=== PATIENT | female | born 1955 | race Caucasian/White ===

== ENCOUNTER 2017-12-13 11:44 | Emergency (ER) | payer OTHER ==
[~2017-12-13] VITALS: Ht 149.9 cm; Wt 68.0 kg
[2017-12-13] MEDS ORDERED: ATORVASTATIN CA40 MG (12:13)
[2017-12-13] MEDS ORDERED: LOSARTAN POTASS50 MG (12:13)
[2017-12-13] MEDS ORDERED: LEVOTHYROXINE100 MCG (12:13)
[2017-12-13] MEDS ORDERED: TRESIBA (12:13)
[2017-12-13] MEDS ORDERED: ASPIRIN 81 MG CHEW TAB PO ONE (12:15)
[2017-12-13 12:22] LABS: BASOPHILS # (AUTO) 0.1 (0.0-0.1); BASOPHILS % 0.4 % (0.0-1.0); EOSINOPHILS # (AUTO) 0.3 (0.0-0.4); EOSINOPHILS % 2.2 % (0.0-6.0); HEMATOCRIT 45.7 % (34.2-44.1); HEMOGLOBIN 15.6 g/dL (12.0-16.0); LYMPHOCYTES # (AUTO) 2.3 (1.0-3.2); LYMPHOCYTES % 20.9 % (18.0-39.1); MEAN CORPUSCULAR HEMOGLOBIN 29.4 pg (28-32); MEAN CORPUSCULAR HGB CONC 34.1 g/dL (31-35); MEAN CORPUSCULAR VOLUME 86.2 fL (81-99); MONOCYTES # (AUTO) 0.9 (0.2-0.8); MONOCYTES % 7.8 % (4.4-11.3); NEUTROPHILS # (AUTO) 7.6 (2.1-6.9); NEUTROPHILS % 68.3 % (38.7-80.0); PLATELET COUNT 248 x10e3/uL (140-360); RED CELL DISTRIBUTION WIDTH 13.2 % (11.7-14.4)
[2017-12-13 12:33] LABS: INR 0.77; PROTHROMBIN TIME 11.5 seconds (11.9-14.5)
[2017-12-13 12:34] LABS: PARTIAL THROMBOPLASTIN TIME 29.4 seconds (23.8-35.5)
[2017-12-13 12:39] LABS: AMYLASE 62 U/L (25-125); CREATINE KINASE 30 IU/L (29-168); LIPASE 18 U/L (8-78)
[2017-12-13 12:56] LABS: BILIRUBIN,URINE NEGATIVE (NEGATIVE); CLARITY,URINE HAZY (CLEAR); COLOR,URINE YELLOW (YELLOW); KETONES,URINE NEGATIVE (NEGATIVE); LEUKOCYTE ESTERASE ,URINE NEGATIVE (NEGATIVE); NITRITE,URINE NEGATIVE (NEGATIVE); PROTEIN,URINE DIPSTICK NEGATIVE (NEGATIVE); URINE UROBILINOGEN 0.2 mg/dL (0.2 - 1)
--- NOTE | 2017-12-13 13:07 | Diagnostic Imaging Report ---
EXAMINATION: CHEST SINGLE (PORTABLE) COMPARISON: None FINDINGS: TUBES and LINES: None. LUNGS: Low lung volumes. Mild patchy left basilar opacity. No evidence of lobar consolidation or pulmonary edema. PLEURA: No pleural effusion or pneumothorax. HEART AND MEDIASTINUM: The cardiomediastinal silhouette is unremarkable. BONES AND SOFT TISSUES: No acute osseous lesion. Soft tissues are unremarkable. UPPER ABDOMEN: No free air under the diaphragm. IMPRESSION: Mild patchy left basilar opacity, likely atelectasis. No evidence of lobar pneumonia or pulmonary edema. Signed by: Dr. Juan Morelos MD on 12/13/2017 1:04 PM
[2017-12-13 13:15] LABS: BACTERIA,URINE RARE /HPF; CALCIUM OXALATE CRYSTALS,UR RARE (FEW); EPITHELIAL CELLS,URINE FEW /LPF; MUCUS,URINE MODERATE (RARE)
[2017-12-13 13:31] LABS: ALANINE AMINOTRANSFERASE 46 IU/L (0-55); ALBUMIN/GLOBULIN RATIO 0.9 (0.8-2.0); ALKALINE PHOSPHATASE 168 IU/L (40-150); BLOOD UREA NITROGEN 19 mg/dL (7-26); BUN/CREATININE RATIO 23 (6-25); CALCIUM 10.3 mg/dL (8.4-10.2); CARBON DIOXIDE 24 mmol/L (22-29); CHLORIDE 103 mmol/L (98-107); CREATININE, SERUM 0.81 mg/dL (0.57-1.11); EST GLOMERULAR FILTRATION RATE > 60 ML/MIN (60-); GLUCOSE 194 mg/dL (74-118); SODIUM 138 mmol/L (136-145)
--- OUTSIDE RECORDS SUMMARY | 2017-12-24 11:10 | XMS REPORT | Summary of Care ---
Author Author [facility] Outpatient Imaging [facility] Address Unknown Phone Unavailable Encounter HQ Encntr_alias(FIN) [id number] Date(s): 10/05/16 - 10/05/16 [facility] Outpatient Imaging [facility] [address] [facility], [address] [place] [phone] Discharge Disposition: Home or Self Care Attending Physician: Nehemiah Carter MD Vital Signs No data available for this section Problem List Condition Effective Dates Status Health Status Informant Asthma(Confirmed) Resolved Diabetes Resolved mellitus(Confirmed) Fatty Resolved liver(Confirmed) Hyperlipidemia(Confi Resolved rmed) Allergies, Adverse Reactions, Alerts Substance Reaction Severity Status NKDA Active Medications No data available for this section Results No data available for this section Immunizations Given and Recorded Vaccine Date Status Refusal Reason influenza virus vaccine, inactivated 05/09/13 Given Procedures Procedure Date Related Diagnosis Body Site Hysterectomy Social History No data available for this section Assessment and Plan No data available for this section
--- OUTSIDE RECORDS SUMMARY | 2017-12-24 11:10 | XMS REPORT | Summary of Care ---
Author Author [facility] Organization [facility] Address Unknown Phone Unavailable Encounter CORAZON Mejía(GIORGIO) [id number] Date(s): 10/23/16 - 10/23/16 [facility] [address] [place] [address]- [phone] Discharge Disposition: Home or Self Care Attending Physician: Live Montes MD Referring Physician: Live Montes MD Vital Signs 1 2 3 Most recent to oldest [Reference Range]: 149.86 cm (10/22/16 8:35 AM) Height 120/68 mmHg (10/23/16 11:25 AM) 106/63 mmHg (10/23/16 11:05 AM) 105/58 mmHg (10/23/16 10:50 AM) Blood Pressure [90-140/60-90 mmHg] 18 BRMIN (10/23/16 11:25 AM) 11 BRMIN *LOW* (10/23/16 11:05 AM) 17 BRMIN (10/23/16 10:50 AM) Respiratory Rate [14-20 BRMIN] 66.989 kg (10/22/16 8:35 AM) Weight 29.83 m2 (10/22/16 8:35 AM) Body Mass Index Problem List Condition Effective Dates Status Health Status Informant Asthma(Confirmed) Resolved Diabetes Resolved mellitus(Confirmed) Diverticulosis(Confi Resolved rmed) Fatty Resolved liver(Confirmed) Hyperlipidemia(Confi Resolved rmed) HTN Resolved (hypertension)(Confi rmed) Hypothyroid(Confirme Resolved d) Renal Resolved calculi(Confirmed) Thyroid Resolved cancer(Confirmed) Bladder Resolved cancer(Confirmed) Colon Resolved polyps(Confirmed) Allergies, Adverse Reactions, Alerts Substance Reaction Severity Status venlafaxine Active Medications albuterol-ipratropium 2.5-0.5 mg inhalation solution 3 mL, Route: NEB, Dosing Weight 66.989, kg, ONCE, STAT, Start date: 10/23/16 9:4 5:00 CDT, Stop date: 10/23/16 9:45:00 CDT Start Date: 10/23/16 Stop Date: 10/23/16 Status: Discontinued ALPRAZOLam 0.5 mg oral tablet 0.5 mg=1 tab, PO, TID, PRN Anxiety, # 30 tab, 0 Refill(s) Start Date: 10/22/16 Stop Date: 11/01/16 Status: Ordered atorvastatin 40 mg oral tablet 40 mg=1 tab, PO, Bedtime, # 30 tab, 0 Refill(s) Start Date: 10/22/16 Status: Ordered fluticasone nasal 0.05 mg/inh spray 1 spray, NASAL, Daily, 0 Refill(s) Start Date: 10/22/16 Stop Date: 10/23/16 Status: Deleted Januvia 100 mg oral tablet 100 mg=1 tab, PO, Daily, # 30 tab, 0 Refill(s) Start Date: 10/22/16 Status: Ordered Levemir 100 units/mL SUB-Q, inject 35 units nightly: replacing Lantus, 0 Refill(s) Start Date: 10/22/16 Status: Ordered NovoLOG 100 units/mL See Instructions, 0 Refill(s) Start Date: 10/22/16 Status: Ordered Sodium Chloride 0.9% IV 500 mL 500 mL, Rate: 25 ml/hr, Infuse over: 20 hr, Route: IV, Dosing Weight 66.989 kg, Total Volume: 500, Start date: 10/23/16 9:45:00 CDT, Duration: 30 day, Stop date : 11/22/16 9:44:00 CDT Start Date: 10/23/16 Stop Date: 10/23/16 Status: Discontinued Results No data available for this section Immunizations Given and Recorded Vaccine Date Status Refusal Reason influenza virus vaccine, inactivated 05/09/13 Given Procedures Procedure Date Related Diagnosis Body Site Hysterectomy Oophorectomy Social History Social History Type Response Smoking Status Never smoker; Lives with someone who smokes; Cigarette Smoking Last 365 Days No; Reg Smoking Cessation Counseling No Assessment and Plan No data available for this section
--- OUTSIDE RECORDS SUMMARY | 2017-12-24 11:10 | XMS REPORT | Continuity of Care Document ---
Author Author [facility] Interface Address Unknown Phone Unavailable Problems Problem Status Onset Date Classification Date Reported Comments Source UNK Active 10/17/2016 [facility] M72.2 - PLANTAR FASCIAL FIBROMATOSIS Active 10/05/2016 [facility]hma [facility] Diabetes mellitus Resolved Problem 10/26/2016 [facility] Diverticulosis Resolved Problem 10/26/2016 [facility] Fatty liver Resolved Problem 10/26/2016 [facility] Hyperlipidemia Resolved Problem 10/26/2016 [facility] HTN (<span ID="[id number]">Confirmed</span>) Resolved Problem 10/26/2016 [facility] Hypothyroid Resolved Problem 10/26/2016 [facility] Renal calculi Resolved Problem 10/26/2016 [facility] Thyroid cancer Resolved Problem 10/26/2016 [facility] Bladder cancer Resolved Problem 10/26/2016 [facility] Colon polyps Resolved Problem 10/26/2016 [facility] Medications Medication Details Route Status Patient Instructions Ordering Provider Order Date Source Albuterol 0.833 MG/ML / Ipratropium Clarion 0.167 MG/ML Inhalant Solution 3 mL, Route: NEB, Dosing Weight 66.989, kg, ONCE, STAT, Start date: 10/23/16 9:45:00 CDT, Stop date: 10/23/16 9:45:00 CDT Inactive 10/23/2016 [facility] Sodium Chloride 0.9% IV 500 mL 500 mL, Rate: 25 ml/hr, Infuse over: 20 hr, Route: IV, Dosing Weight 66.989 kg, Total Volume: 500, Start date: 10/23/16 9:45:00 CDT, Duration: 30 day, Stop date: 11/22/16 9:44:00 CDT Inactive 10/23/2016 [facility] sitagliptin 100 MG Oral Tablet [Januvia] 100 mg=1 tab, PO, Daily, # 30 tab, 0 Refill(s) Active 10/22/2016 [facility] Insulin, Aspart, Human 100 UNT/ML Injectable Solution [NovoLog] See Instructions, 0 Refill(s) Active 10/22/2016 [facility] insulin detemir 100 UNT/ML Injectable Solution [Levemir] SUB-Q, inject 35 units nightly: replacing Lantus, 0 Refill(s) Active 10/22/2016 [facility] atorvastatin 40 mg oral tablet 40 mg=1 tab, PO, Bedtime, # 30 tab, 0 Refill(s) Active 10/22/2016 [facility] Alprazolam 0.5 MG Oral Tablet 0.5 mg=1 tab, PO, TID, PRN Anxiety, # 30 tab, 0 Refill(s) Active 10/22/2016 [facility] Fluticasone propionate 0.05 MG/ACTUAT Metered Dose Nasal Shafer 1 spray, NASAL, Daily, 0 Refill(s) No Longer Active 10/22/2016 [facility] Allergies, Adverse Reactions, Alerts Substance Category Reaction Severity Reaction type Status Date Reported Comments Source venlafaxine Assertion Drug allergy Active [facility] Immunizations Immunization Date Given Site Status Last Updated Comments Source influenza virus vaccine, inactivated 05/09/2013 Right deltoid completed [facility] Results Order Name Results Value Reference Range Date Interpretation Comments Source Spine cervical wo contrast MRI Spine cervical wo contrast MRI EXAM: Spine cervical wo contrast MRI DATE: 10/05/2017 11:19 AM CDT . ORDERING PHYSICIAN: Gela Martinez MD CLINICAL INDICATION: R29.2 Abnormal reflex - R29.2 Abnormal reflex; TECHNIQUE: Multiplanar, multisequence MRI cervical spine without IV contrast COMPARISON: Unavailable FINDINGS: VISUALIZED INTRACRANIAL CONTENTS: Unremarkable. CRANIOCERVICAL JUNCTION: The cerebellar tonsils are in normal position. SPINAL CORD: No definite cord signal abnormality. No definite dural based lesion. VERTEBRAE: The vertebrae are normal in height. The lordosis is straightened. No focal suspicious bone marrow signal abnormality. PARASPINAL SOFT TISSUES: No edema or masses DISC LEVELS, SPINAL CANAL, NEURAL FORAMINA: The cervical pedicles are short. Craniocervical junction: No stenosis C1-C2: No subluxation, ligamentous pannus formation, or stenosis C2-C3: Intervertebral disc height and signal are maintained. Posterior elements are normal.There is no stenosis. C3-C4: Desiccated disc with circumferential disc osteophyte complex. There is bilateral facet and uncinate hypertrophy. Central canal measures 10 mm. There is moderate to severe narrowing of the neural foramina, left greater than right. C4-C5: Desiccated disc with circumferential disc osteophyte complex and shallow 2 mm central zone disc protrusion. This bilateral facet hypertrophy. Uncinate processes are unremarkable. Central canal measures 10 mm. There is mild narrowing of the neural foramina. C5-C6: Desiccated disc with circumferential disc osteophyte complex. There is bilateral facet and uncinate hypertrophy. Central canal measures 9 mm with ventral spinal cord deformity. There is severe left and moderate right neural foramen narrowing. C6-C7: Desiccated disc with circumferential disc osteophyte complex. There is left facet hypertrophy. Uncinate processes are unremarkable. Central canal measures 10 mm. There is mild narrowing of left neural foramen. C7-T1: Desiccated disc with circumferential disc osteophyte complex asymmetric to left. This left greater than right facet and uncinate hypertrophy. Central canal measures 10 mm. There is moderate narrowing of the left neural foramen. IMPRESSION: 1. C5-6 mild spinal stenosis with ventral spinal cord deformity but no evidence of myelopathy 2. Borderline spinal stenosis at C3-4, C6-7, C7-T1 with no spinal cord mass effect 3. Severe/moderate to severe neural foramen narrowing bilaterally at C3-4 and on the left at C5-6 4. Please see additional comments above 10/05/2017 - - Read by: Kei Corona MD Dictated Date/time: 10/05/17 15:07 Electronically Signed by: Kei Corona MD 10/05/17 15:13 FINAL REPORT STEPHANIE Ponce Abdomen complete US Abdomen complete US EXAM: US ABDOMEN COMPLETE DATE: 10/17/2016 2:01 PM CDT INDICATION: - R10.9 Unspecified abdominal pain,R74.8 Abnormal levels of other serum enzymes. Gaseous and bloating. ADDITIONAL INFORMATION: None. COMPARISON: CT scan of the abdomen and pelvis of 05/08/2013. Abdominal ultrasound of 04/12/2008.. TECHNIQUE: Multiplanar grayscale and color Doppler ultrasound images of the abdomen. Note was made by the technologist that the exam was limited secondary to the patient's body habitus and bowel gas. FINDINGS: Liver: Craniocaudal length: 13.5 cm. Normal. Echogenicity: Diffusely mildly increased. Surface nodularity: None Mass (size and location): None. Portal vein: 9 mm with hepatopetal flow. Bile ducts: Common bile duct diameter: 5.1 mm. Normal. Intrahepatic ducts: Normal. Gallbladder: Normal. Gallstones: None. Gallbladder sludge: None. Gallbladder wall: 2.4 mm. Normal. Pericholecystic fluid: None. Sonographic Carter sign: Absent. Pancreas: No abnormalities of the visualized portions of the pancreas are demonstrated. Portions of the pancreas are obscured by overlying bowel gas. Spleen: Craniocaudal length: 11.3 cm. Normal. Mass or focal lesion (size and location): None. Right kidney: Size: 10.2 x 5.0 x 5.6 cm. Normal. Hydronephrosis: None. Echogenicity: Normal. Mass/Stone/Cyst (size and location): None. Left kidney: Size: 10.8 x 4.7 x 5.5 cm. Normal. Hydronephrosis: None. Echogenicity: Normal. Mass/Stone/Cyst (size and location): There is a partially exophytic anechoic avascular thin-walled simple left renal superior pole cortical cyst measuring 2.0 x 2.9 x 2.2 cm. A second mid left simple renal cortical cyst measuring 1.6 x 1.8 x 1.1 cm is visualized. A third tiny simple cyst is seen in the inferior pole cortex of the left kidney measuring 0.9 x 0.8 x 0.6 cm. These are stable from the prior CT exam. Abdominal aorta and IVC: Visualized portions are normal. Ascites: None Pleural Effusions: None IMPRESSION: 1. Diffuse mild increased echogenicity of the liver, a nonspecific finding most commonly seen with hepatic steatosis (fatty infiltration) as seen on the prior CT exam. 2. Simple left renal cortical cysts, stable from the prior CT of 05/08/2013. 10/17/2016 - - Read by: Jonatan Restrepo MD Dictated Date/time: 10/17/16 15:26 Electronically Signed by: Jonatan Restrepo MD 10/17/16 15:33 FINAL REPORT [facility] Foot series DX Foot series DX EXAM: XR RIGHT FOOT 3 VIEWS DATE: 10/05/2016 11:51 AM CDT INDICATION: - M72.2 Plantar fascial fibromatosis COMPARISON: None available TECHNIQUE: AP, lateral and oblique radiographs of the foot FINDINGS: No acute fracture or malalignment is identified. Small calcaneal enthesophytes are noted. No soft tissue abnormality is identified. IMPRESSION: No acute abnormality. 10/05/2016 - - This report was dictated by a Straightedge Machine Operator Helper/Fellow. I have personally reviewed the images as well as the Resident's interpretation and agree with the findings. Read by: Mitchell Fairbanks MD Resident: Mitchell Fairbanks MD Dictated Date/time: 10/05/16 13:52 Electronically Signed by: Rafael Camacho MD 10/05/16 17:16 FINAL REPORT [facility] Vital Signs Vital Sign Value Date Comments Source Respitory Rate 18 10/23/2016 [facility] Systolic (mm Hg) 120 10/23/2016 [facility] Diastolic (mm Hg) 68 10/23/2016 [facility] Systolic (mm Hg) 106 10/23/2016 [facility] Diastolic (mm Hg) 63 10/23/2016 [facility] Respitory Rate 11 10/23/2016 [facility] Systolic (mm Hg) 105 10/23/2016 [facility] Diastolic (mm Hg) 58 10/23/2016 [facility] Respitory Rate 17 10/23/2016 [facility] BMI Calculated 29.83 10/22/2016 [facility] Height 149.86 cm 10/22/2016 [facility] Weight 66.989 10/22/2016 [facility] Encounters Location Location Details Encounter Type Encounter Number Reason For Visit Attending Provider ADM Date DC Date Status Source [facility] Outpatient Imaging [facility] Out[facility] Di[facility] [id number] Nehemiah Carter 10/05/2016 10/06/2016 [facility] [place] [id number] Live Montes 10/17/2016 10/18/2016 [facility] Outpatient [id number] Live Montes 10/23/2016 10/23/2016 [facility] Procedures Procedure Code Date Perfomer Comments Source Hysterectomy [id number] [facility] Hysterectomy [id number] [facility] Oophorectomy [id number] [facility]
--- OUTSIDE RECORDS SUMMARY | 2017-12-24 11:10 | XMS REPORT | Summary of Care ---
Author Author [facility] Outpatient Imaging [facility] Outpatient [facility] Address Unknown Phone Unavailable Encounter HQ Alexntr_alisamia(FIN) [id number] Date(s): 10/17/16 - 10/17/16 [facility] [address] [facility], [address] [place] [phone] Discharge Disposition: Home or Self Care Attending Physician: Live Montes MD Vital Signs No data available for [...]
== END 2017-12-13 14:20 | disposition home or self-care (01) ==
LOC: ER 11:44
DX: R07.89 Other chest pain (principal); R11.0 Nausea; R61 Generalized hyperhidrosis; E11.9 Type 2 diabetes mellitus without complications; I10 Essential (primary) hypertension; E78.5 Hyperlipidemia, unspecified; E07.9 Disorder of thyroid, unspecified
CPT/HCPCS: 36415; 71045; 80053; 81001; 82150; 82550; 82553; 83690; 84484; 85025; 85610; 85730; 93005; 99283

== ENCOUNTER 2020-01-13 07:15 | Observation (INO) | payer OTHER ==
[~2020-01-13] VITALS: Ht 149.9 cm; Wt 70.3 kg
[~2020-01-13 07:15] MED LIST: ATORVASTATIN CA40 MG PO; LEVOTHYROXINE100 MCG PO; LOSARTAN POTASS50 MG PO; TRESIBA
[2020-01-13] MEDS ORDERED: PANTOPRAZOLE 40 MG 10ML VIAL IV STA (07:30)
[2020-01-13] MEDS ORDERED: ASPIRIN 81 MG CHEW TAB PO ONE (07:30)
[2020-01-13 07:46] LABS: BASOPHILS % 0.5 % (0.0-1.0); EOSINOPHILS # (AUTO) 0.2 (0.0-0.4); EOSINOPHILS % 2.4 % (0.0-6.0); HEMATOCRIT 40.4 % (34.2-44.1); HEMOGLOBIN 13.6 g/dL (12.0-16.0); LYMPHOCYTES % 26.8 % (18.0-39.1); MEAN CORPUSCULAR HEMOGLOBIN 29.4 pg (28-32); MEAN CORPUSCULAR HGB CONC 33.7 g/dL (31-35); MEAN CORPUSCULAR VOLUME 87.4 fL (81-99); MONOCYTES # (AUTO) 0.6 (0.2-0.8); MONOCYTES % 7.3 % (4.4-11.3); NEUTROPHILS # (AUTO) 4.7 (2.1-6.9); NEUTROPHILS % 62.5 % (38.7-80.0); PLATELET COUNT 207 x10e3/uL (140-360); RED BLOOD COUNT 4.62 x10e6/uL (3.6-5.1); RED CELL DISTRIBUTION WIDTH 12.9 % (11.7-14.4)
[2020-01-13 07:57] LABS: INR 0.84; PROTHROMBIN TIME 11.9 seconds (11.9-14.5)
[2020-01-13 07:58] LABS: PARTIAL THROMBOPLASTIN TIME 28.6 seconds (23.8-35.5)
[2020-01-13 08:09] LABS: ALANINE AMINOTRANSFERASE 87 IU/L (0-55); ALBUMIN 3.7 g/dL (3.5-5.0); ALBUMIN/GLOBULIN RATIO 0.9 (0.8-2.0); ALKALINE PHOSPHATASE 145 IU/L (40-150); ANION GAP 11.5 mmol/L (8-16); BLOOD UREA NITROGEN 12 mg/dL (7-26); BUN/CREATININE RATIO 16 (6-25); CALCIUM 9.2 mg/dL (8.4-10.2); CARBON DIOXIDE 26 mmol/L (22-29); CHLORIDE 105 mmol/L (98-107); CREATINE KINASE 29 IU/L (29-168); CREATININE, SERUM 0.73 mg/dL (0.57-1.11); EST GLOMERULAR FILTRATION RATE > 60 ML/MIN (60-); GLUCOSE 152 mg/dL (74-118); MAGNESIUM 1.8 MG/DL (1.3-2.1); POTASSIUM 3.5 mmol/L (3.5-5.1); SODIUM 139 mmol/L (136-145)
--- NOTE | 2020-01-13 08:14 | Emergency Department Note ---
History of Present Illnes History of Present Illness Chief Complaint: General Medicine Complaints History of Present Illness This is a 64 year old female pt came in via [facility] called for c/o dizziness, pt states that she woke up this morning and felt a "knot" in her belly, pressure-like pain to her chest with radiation to back and diaphoresis and stating that she felt light headed when she tried to get up, pt appears to be in no distress. CP 7/10 lasted ~10-15 mins, resolved on the way here. Historian: Patient Arrival Mode: [facility] Treatment GENERAL MAGISTRATE: IV Public Policy Analyst Required: No Onset (how long ago): minute(s) Location: mid sternal Quality: pressure Radiation: Reports back Severity: moderate Onset quality: sudden Progression: resolved Chronicity: recurrent Context: Denies recent illness Relieving factors: none Exacerbating factors: none Associated symptoms: Reports chest pain; Denies cough, Denies fever/chills, Denies shortness of breath Past Medical/Family History Physician Review I have reviewed the patient's past medical and family history. Any updates have been documented here. Past Medical History Recent Fever: No Clinical Suspicion of Infectio: No New/Unexplained Change in Ment: No Past Medical History: Hypertension, Diabetes, Asthma, Hypothyroidism, Hyperlipedemia Past Surgical History: Hysterectomy Social History Smoking Cessation: Never Smoker Counseling Performed: No Alcohol Use: None Any Illegal Drug Use: No TB Exposure/Symptoms: No Physically hurt or threatened: No Family History Family history of heart diseas: Yes Other Any Pre-Existing Lines (PICC,: No Review of Systems Review of Systems Constitutional: Reports no symptoms EENTM: Reports no symptoms Cardiovascular: Reports as per HPI, Reports chest pain Respiratory: Reports no symptoms Gastrointestinal: Reports no symptoms Genitourinary: Reports no symptoms Musculoskeletal: Reports no symptoms Integumentary: Reports no symptoms Neurological: Reports as per HPI, Reports other (dizziness which occurred when having chest pressure, resolved when CP resolved) Psychological: Reports no symptoms Endocrine: Reports no symptoms Hematological/Lymphatic: Reports no symptoms Physical Exam Related Data Allergies: Coded Allergies: No Known Allergies (Unverified , 12/13/17) Triage Vital Signs Vital Signs Date Time Temp Pulse Resp B/P (MAP) Pulse Ox O2 Delivery O2 Flow Rate FiO2 01/13/20 07:19 97.9 63 18 150/80 97 Room Air Vital signs reviewed: Yes Physical Exam CONSTITUTIONAL Constitutional: Present well-developed, Present well-nourished HENT HENT: Present normocephalic, Present atraumatic, Present oropharynx clear/moist, Present nose normal HENT L/R: Present left ext ear normal, Present right ext ear normal EYES Eyes: Reports PERRL, Reports conjunctivae normal NECK Neck: Present ROM normal PULMONARY Pulmonary: Present effort normal, Present breath sounds normal CARDIOVASCULAR Cardiovascular: Present regular rhythm, Present heart sounds normal, Present capillary refill normal, Present normal rate GASTROINTESTINAL Abdominal: Present soft, Present nontender, Present bowel sounds normal GENITOURINARY Genitourinary: Present exam deferred SKIN Skin: Present warm, Present dry MUSCULOSKELETAL Musculoskeletal: Present ROM normal NEUROLOGICAL Neurological: Present alert, Present oriented x 3, Present no gross motor or sensory deficits PSYCHOLOGICAL Psychological: Present mood/affect normal, Present judgement normal Results Laboratory Result Diagram: 01/13/20 0735 Laboratory Laboratory Tests Test 01/13/20 07:35 White Blood Count 7.50 x10e3/uL (4.8-10.8) Red Blood Count 4.62 x10e6/uL (3.6-5.1) Hemoglobin 13.6 g/dL (12.0-16.0) Hematocrit 40.4 % (34.2-44.1) Mean Corpuscular Volume 87.4 fL (81-99) Mean Corpuscular Hemoglobin 29.4 pg (28-32) Mean Corpuscular Hemoglobin Concent 33.7 g/dL (31-35) Red Cell Distribution Width 12.9 % (11.7-14.4) Platelet Count 207 x10e3/uL (140-360) Neutrophils (%) (Auto) 62.5 % (38.7-80.0) Lymphocytes (%) (Auto) 26.8 % (18.0-39.1) Monocytes (%) (Auto) 7.3 % (4.4-11.3) Eosinophils (%) (Auto) 2.4 % (0.0-6.0) Basophils (%) (Auto) 0.5 % (0.0-1.0) Neutrophils # (Auto) 4.7 (2.1-6.9) Lymphocytes # (Auto) 2.0 (1.0-3.2) Monocytes # (Auto) 0.6 (0.2-0.8) Eosinophils # (Auto) 0.2 (0.0-0.4) Basophils # (Auto) 0.0 (0.0-0.1) Absolute Immature Granulocyte (auto 0.04 x10e3/uL (0-0.1) Prothrombin Time 11.9 seconds (11.9-14.5) Prothromb Time International Ratio 0.84 Activated Partial Thromboplast Time 28.6 seconds (23.8-35.5) Sodium Level 139 mmol/L (136-145) Potassium Level 3.5 mmol/L (3.5-5.1) Chloride Level 105 mmol/L (98-107) Carbon Dioxide Level 26 mmol/L (22-29) Anion Gap 11.5 mmol/L (8-16) Blood Urea Nitrogen 12 mg/dL (7-26) Creatinine 0.73 mg/dL (0.57-1.11) Estimat Glomerular Filtration Rate > 60 ML/MIN (60-) BUN/Creatinine Ratio 16 (6-25) Glucose Level 152 mg/dL (74-118) Calcium Level 9.2 mg/dL (8.4-10.2) Magnesium Level 1.8 MG/DL (1.3-2.1) Total Bilirubin 0.5 mg/dL (0.2-1.2) Aspartate Amino Transf (AST/SGOT) 71 IU/L (5-34) Alanine Aminotransferase (ALT/SGPT) 87 IU/L (0-55) Alkaline Phosphatase 145 IU/L (40-150) Creatine Kinase 29 IU/L (29-168) Creatine Kinase MB 0.70 ng/mL (0-5.0) Troponin I 0.008 ng/mL (0-0.300) B-Type Natriuretic Peptide < 10.0 pg/mL (0-100) Total Protein 7.9 g/dL (6.5-8.1) Albumin 3.7 g/dL (3.5-5.0) Globulin 4.2 g/dL (2.3-3.5) Albumin/Globulin Ratio 0.9 (0.8-2.0) Laboratory Tests Test 01/13/20 07:35 White Blood Count 7.50 x10e3/uL (4.8-10.8) Red Blood Count 4.62 x10e6/uL (3.6-5.1) Hemoglobin 13.6 g/dL (12.0-16.0) Hematocrit 40.4 % (34.2-44.1) Mean Corpuscular Volume 87.4 fL (81-99) Mean Corpuscular Hemoglobin 29.4 pg (28-32) Mean Corpuscular Hemoglobin Concent 33.7 g/dL (31-35) Red Cell Distribution Width 12.9 % (11.7-14.4) Platelet Count 207 x10e3/uL (140-360) Neutrophils (%) (Auto) 62.5 % (38.7-80.0) Lymphocytes (%) (Auto) 26.8 % (18.0-39.1) Monocytes (%) (Auto) 7.3 % (4.4-11.3) Eosinophils (%) (Auto) 2.4 % (0.0-6.0) Basophils (%) (Auto) 0.5 % (0.0-1.0) Neutrophils # (Auto) 4.7 (2.1-6.9) Lymphocytes # (Auto) 2.0 (1.0-3.2) Monocytes # (Auto) 0.6 (0.2-0.8) Eosinophils # (Auto) 0.2 (0.0-0.4) Basophils # (Auto) 0.0 (0.0-0.1) Absolute Immature Granulocyte (auto 0.04 x10e3/uL (0-0.1) Prothrombin Time 11.9 seconds (11.9-14.5) Prothromb Time International Ratio 0.84 Activated Partial Thromboplast Time 28.6 seconds (23.8-35.5) Lab results reviewed: Yes Imaging Imaging results reviewed: Yes Procedures 12 Lead ECG Interpretation ECG Interpretation : ECG: ECG 1 Public Policy Analyst: Interpreted by ED physician Date: Jan 13, 2020 Time: 07:27 Prior ECG tracings: reviewed (no change from 12/13/2017) Rhythm: sinus rhythm Rate: normal BPM: 61 QRS axis: normal ST segments normal: Yes T wave inversion: III, aVF, V1, V2, V3, V4, V5, V6 T waves flattening: II Q waves: III Clinical Impression: abnormal ECG Assessment & Plan Medical Decision Making MDM multiple cardiac RF's with CP - cbc, chem, ecg, cardiacs, cxr - r/o ACS/STEMI/NSTEMI, renal insuff, electrolyte abnl Reassessment Reassessment admit to Dr Simpson (PCP is at [facility]) Assessment & Plan Final Impression: (1) Chest pain Depart Disposition: ADMITTED Last Vital Signs Date Time Temp Pulse Resp B/P (MAP) Pulse Ox O2 Delivery O2 Flow Rate FiO2 01/13/20 07:41 78 18 144/74 Room Air 01/13/20 07:19 97.9 97 Home Meds Reported Medications Atorvastatin Calcium (ATORVASTATIN CALCIUM) 40 Mg Tablet, #30 12/13/17 Losartan Potassium (LOSARTAN POTASSIUM) 50 Mg Tablet, #30 12/13/17 Levothyroxine Sodium (LEVOTHYROXINE SODIUM) 100 Mcg Tablet, #30 12/13/17 [Tresiba] No Conflict Check, #15 12/13/17 Medications in the ED Pantoprazole Sodium 40 mg ONCE STAT IV ; Start 01/13/20 at 07:30; Stop 01/13/20 at 07:33; Status DC Aspirin 81 mg NOW ONCE PO ; Start 01/13/20 at 07:30; Stop 01/13/20 at 07:33; Status DC JESSICA ROGER MD Jan 13, 2020 08:14
[2020-01-13] MEDS ORDERED: ONDANSETRON HCL INJ 2MG/ML 2ML 2 MG/ML VIAL IV PRN (08:30)
[2020-01-13] MEDS ORDERED: MORPHINE SULFATE 2 MG/ML SYR 1ML IV PRN (08:30)
[2020-01-13] MEDS ORDERED: ASPIRIN 81 MG ENTERIC COATED PO SCH (09:00)
--- NOTE | 2020-01-13 09:13 | Diagnostic Imaging Report ---
EXAMINATION: CHEST SINGLE (PORTABLE) INDICATION: Chest pain COMPARISON: Chest radiograph 12/13/2017 FINDINGS: LINES/TUBES:None LUNGS:The lungs are well-inflated. No focal consolidation or pulmonary edema. PLEURA:No pleural effusion or pneumothorax. MEDIASTINUM:The cardiomediastinal silhouette appears normal in size and shape. BONES/SOFT TISSUES:No acute osseous injury. ABDOMEN:No free air under the diaphragm. IMPRESSION: No focal pneumonia or pulmonary edema. Signed by: Nino Petit MD on 01/13/2020 9:10 AM
[2020-01-13 10:41] VITALS: BP 123/74
--- NOTE | 2020-01-13 10:44 | NUR ---
Received report from ER nurse at 0856. Patient arrived to unit at 0907. Patient AOx3, ambulatory, IV in right ac 18g C/D/I. Patient son at bedside. Oriented to whiteboard, hourly rounding, bedside shift report, room, procedures, and plan of care. No issues or complaints at this time.
[2020-01-13] MEDS ORDERED: PROZAC10 MG PO (11:17)
[2020-01-13] MEDS ORDERED: BENADRYL25 M1 PO (11:18)
[2020-01-13] MEDS ORDERED: JANUVIA100 MG PO (11:18)
[2020-01-13] MEDS ORDERED: HUMALOG100 UNIT/1 SQ (11:20)
[2020-01-13] MEDS ORDERED: TRESIBA100 UNIT/1 SQ (11:21)
[2020-01-13 11:53] VITALS: BP 123/74
[2020-01-13 12:59] LABS: CREATINE KINASE MB 0.6 ng/mL (0-5.0)
[2020-01-13] MEDS ORDERED: FAMOTIDINE20 MG PO (14:16)
[2020-01-13] MEDS ORDERED: ASPIRIN EC81 MG PO (14:16)
[2020-01-13 14:31] LABS: THYROID STIMULATING HORMONE 2.37 uIU/mL (0.350-4.940)
[2020-01-13] MEDS ORDERED: FAMOTIDINE 20 MG TAB PO SCH (16:30)
[2020-01-13 16:31] VITALS: BP 130/64
[2020-01-13 18:20] LABS: CREATINE KINASE MB 0.5 ng/mL (0-5.0)
--- NOTE | 2020-01-13 18:46 | NUR ---
Received discharge order from Dr. Simpson's CALIBRATION ENGINEER Dari. Patient IV removed at 1830 and covered with a C/D/I dressing. Patient tele removed and brought to tele. Patient given discharge instructions, education, and prescriptions. Patient and son verbalized understanding. Patient wheeled to son's car at 1845. No issues or complaints.
[2020-01-13] MEDS ORDERED: FAMOTIDINE 20 MG/2 ML VIAL IV SCH (21:00)
[2020-01-14] MEDS ORDERED: ASPIRIN 81 MG CHEW TAB PO SCH (09:00)
--- OUTSIDE RECORDS SUMMARY | 2020-01-14 19:29 | XMS REPORT | Continuity of Care Document ---
Author Author [facility] t Organization [facility] Address [address] [place] [address] Phone Unavailable Care Team Providers Care Wheelchair Rental Clerk Name Role Phone Severo DALAL PCP VIRIDIANA LIGHT Attphys Unavailable Pattie RUST Attphys Unavailable VIRIDIANA LIGHT Admphys Unavailable Payers Payer Name Policy Type Policy Number Effective Date Expiration Date S hima [facility] Ppo [id number] [facility] Problems This patient has no known problems. Allergies, Adverse Reactions, Alerts This patient has no known allergies or adverse reactions. Medications Ordered Medication Name Filled Medication Name Start Date Stop Da te Current Medication? Ordering Clinician Indication Dosage Frequency Signature (SIG) Comments Components Source Atorvastatin Calcium 40 Mg Tablet Atorvastatin Calcium 40 Mg Tablet Yes [facility] Levothyroxine Sodium 100 Mcg Tablet Levothyroxine Sodium 100 Mcg Tabl et Yes [facility] Losartan Potassium 50 Mg Tablet Losartan Potassium 50 Mg Tablet Yes [facility] Yes [facility] Procedures This patient has no known procedures. Encounters Start Date/Time End Date/Time Encounter Type Admission Type Att[facility] Care Department Encounter ID Source 2019-12-25 08:56:00 2019-12-25 08:56:00 Outpatient [facility] [address] [facility] 2017-12-13 11:44:00 2017-12-13 14:20:00 Departed Emergency Room 1 ANITA RUST [facility] [id number] [facility] Results Test Description Test Time Test Comments Results Result Comments Source CHEST SINGLE (PORTABLE) 2020-01-13 09:09:[address] [facility] CENTERName: LOLA CURTIS : 1955 Sex: F [facility] [address] [address] Patient Name: LOLA CURTIS MR #: [id number] : 1955 Age/Sex: 64/F Req #: [id number] Adm Physician: VIRIDIANA LIGHT MD Ordered by: JESSICA ROGER MD Report #: [id number] Location: [facility] Room/Bed: [place] [address] Procedure: [id number] DX/CHEST SINGLE (PORTABLE) Exam Date: 01/13/20 Exam Time: 0745 REPORT STATUS: Signed EXAMINATION: CHEST SINGLE (PORTABLE) INDICATION: Chest pain COMPARISON: Chest radiograph 12/13/2017 FINDINGS: LINES/TUBES:None LUNGS:The lungs are well-inflated. No focal consolidation or pulmonary edema. PLEURA:No pleural effusion or pneumothorax. MEDIASTINUM:The cardiomediastinal silhouette appears normal in size and shape. BONES/SOFT TISSUES:No acute osseous injury. ABDOMEN:No free air under the diaphragm. IMPRESSION: No focal pneumonia or pulmonary edema. Signed by: Ti Cavazos MD on 01/13/2020 9:10 AM Dictated By: TI CAVAZOS MD 9 Transcribed By: MARIANO on 01/13/20909 COPY TO: JESSICA ROGER MD Sodium Level 2017-12-13 13:34:00 Test Item Sodium Level (test code = 2951-2) 138 136-145 [facility] Lfult0538-17-74 13:34:00* Test Item Value Reference Range Interpretation Comments Potassium Level (test code = 2823-3) 4.0 3.5-5.1 [facility] HospitalChloride Bnfmh3750-48-41 13:34:00* Test Item Value Reference Range Interpretation Comments Chloride Level (test code = 2075-0) 103 98-107 [facility] HospitalCarbon Dioxide Jktpn1414-46-44 13:34:00* Test Item Value Reference Range Interpretation Comments Carbon Dioxide Level (test code = 2028-9) 24 22-29 [facility] HospitalAnion Yyn5681-05-70 13:34:00* Test Item Value Reference Range Interpretation Comments Anion Gap (test code = 50974-3) 15.0 8-16 [facility] HospitalBlood Urea Hcadhdqw0746-81-65 13:34:00* Test Item Value Reference Range Interpretation Comments Blood Urea Nitrogen (test code = 3094-0) 19 7-26 [facility] HospitalCreatinine2018-10-05 13:34:00* Test Item Value Reference Range Interpretation Comments Creatinine (test code = 2160-0) 0.81 0.57-1.11 [facility] HospitalBUN/Creatinine Sttwt5728-25-87 13:34:00* Test Item Value Reference Range Interpretation Comments BUN/Creatinine Ratio (test code = 3097-3) 23 6-25 [facility] HospitalEstimat Glomerular Filtration Rate 2017-12-13 13:34:00* Test Item Value Reference Range Interpretation Comments Estimat Glomerular Filtration Rate (test code = 521886277) 60- >60 Ranges were taken from the National Kidney Disease Education Program and the [facility] literature.Reference ranges:60 or greater: Dnwodn12-61 ( for 3 consecutive months): Chronic kidney disease 15 or less: Kidney failureMethodist Southlake HospitalGlucose Zfkdw4454-49-05 13:34:00* Test Item Value Reference Range Interpretation Comments Glucose Level (test code = KCD1820) 194 74-118 H [facility] HospitalCalcium Qzzdp0850-36-63 13:34:00* Test Item Value Reference Range Interpretation Comments Calcium Level (test code = 74933-2) 10.3 8.4-10.2 H [facility] HospitalTotal Mjdjbqbys2158-10-34 13:34:00* Test Item Value Reference Range Interpretation Comments Total Bilirubin (test code = 1975-2) 0.6 0.2-1.2 [facility] HospitalAspartate Amino Transf (AST/SGOT) 2017-12-13 13:34:00* Test Item Value Reference Range Interpretation Comments Aspartate Amino Transf (AST/SGOT) (test code = Aspartate Amino Transf (AST/SGOT)) 29 5-34 [facility] HospitalAlanine Aminotransferase (ALT/SGPT) 2017-12-13 13:34:00* Test Item Value Reference Range Interpretation Comments Alanine Aminotransferase (ALT/SGPT) (test code = 1742-6) 46 0-55 [facility] HospitalTotal Klqrduv7151-51-29 13:34:00* Test Item Value Reference Range Interpretation Comments Total Protein (test code = 2885-2) 8.6 6.5-8.1 H [facility] HospitalAlbumin2018-10-05 13:34:00* Test Item Value Reference Range Interpretation Comments Albumin (test code = 1751-7) 4.0 3.5-5.0 [facility] HospitalGlobulin2018-10-05 13:34:00* Test Item Value Reference Range Interpretation Comments Globulin (test code = 36073-7) 4.6 2.3-3.5 H [facility] HospitalAlbumin/Globulin Ffuqw0577-12-38 13:34:00 * Test Item Value Reference Range Interpretation Comments Albumin/Globulin Ratio (test code = 1759-0) 0.9 0.8-2.0 [facility] HospitalAlkaline Jfbbemfbask1865-59-39 13:34:00* Test Item Value Reference Range Interpretation Comments Alkaline Phosphatase (test code = 6768-6) 168 40-150 H [facility] HospitalUrine TWJ9833-19-35 13:15:00* Test Item Value Reference Range Interpretation Comments Urine WBC (test code = 5821-4) NONE 0-5 [facility] HospitalUrine QSX1359-39-65 13:15:00* Test Item Value Reference Range Interpretation Comments Urine RBC (test code = 56833-5) NONE 0-5 [facility] HospitalUrine Hfbmsieu0000-15-02 13:15:00* Test Item Value Reference Range Interpretation Comments Urine Bacteria (test code = 08869-5) RARE NONE [facility] HospitalUrine Epithelial Aunnm5270-50-08 13:15:00 * Test Item Value Reference Range Interpretation Comments Urine Epithelial Cells (test code = 33708-1) FEW NONE [facility] HospitalUrine Calcium Oxalate Ehpsjwyk1758-51-65 13:15:00* Test Item Value Reference Range Interpretation Comments Urine Calcium Oxalate Crystals (test code = 5774-5) RARE FE W [facility] HospitalUrine Vrsgv4202-71-77 13:15:00* Test Item Value Reference Range Interpretation Comments Urine Mucus (test code = 8247-9) MODERATE RARE H [facility] HospitalCHEST SINGLE (PORTABLE)2017-12-13 13:01:00 [address] [address] Patient Name: LOLA CURTIS MR #: [id number] : 1955 Age/Sex: 62/F Req #: [id number] Adm Physician: Ordered by: VIKAS CAREY [employer]OTHER[employer] ELECTRICAL ENGINEER Report #: [id number] Location: ER Room/Bed: Procedure: [id number] DX/CHEST SINGLE (PORTABLE) Exam Date: 12/13/17 Exam Time: [address] ATUS: Signed EXAMINATION: CHEST SINGLE (PORTABLE) COMPARISON: None FINDINGS: TUBES and LINES: None. LUNGS: Low lung volumes. Mi ld patchy left basilar opacity. No evidence of lobar consolidation or pulmonar y edema. PLEURA: No pleural effusion or pneumothorax. HEART AND MEDI ASTINUM: The cardiomediastinal silhouette is unremarkable. BONES AND SOFT TISSUES: No acute osseous lesion. Soft tissues are unremarkable. UPPER ABDOMEN: No free air under the diaphragm. IMPRESSION: Mild patchy left basilar opacity, likely atelectasis. No evidence of lobar pneumonia or pulmon cody edema. Signed by: Dr. Purvi Garg MD on 12/13/2017 1:04 PM Dicta samantha By: PURVI GARG MD 1304 Transcribed By: MARIANO on 12/13/17 1304 COPY TO: VIKAS CAREY [employer]OTHER[employer] ELECTRICAL ENGINEER Urine Sawzz6751-08-71 12:56:00* Test Item Value Reference Range Interpretation Comments Urine Color (test code = 5778-6) YELLOW YELLOW [facility] HospitalUrine Jhllnui1692-32-39 12:56:00* Test Item Value Reference Range Interpretation Comments Urine Clarity (test code = 98667-6) HAZY CLEAR [facility] HospitalUrine Specific Clhpxsj2108-40-36 12:56:00 * Test Item Value Reference Range Interpretation Comments Urine Specific [place] (test code = 5811-5) 1.030 1.010-1.02 5 H [facility] HospitalUrine tZ5167-76-80 12:56:00* Test Item Value Reference Range Interpretation Comments Urine pH (test code = 16040-7) 6 5-7 [facility] HospitalU[facility] Leukocyte Nrhtayoo6390-81-94 12:56:00* Test Item Value Reference Range Interpretation Comments Urine Leukocyte Esterase (test code = 5799-2) NEGATIVE NEGATIVE [facility] HospitalUrine Eubrjfw3687-63-59 12:56:00* Test Item Value Reference Range Interpretation Comments Urine Nitrite (test code = 40420-7) NEGATIVE NEGATIVE [facility] HospitalUrine Mecbqmc8111-96-06 12:56:00* Test Item Value Reference Range Interpretation Comments Urine Protein (test code = 5804-0) NEGATIVE NEGATIVE [facility] HospitalUrine Glucose (UA)2017-12-13 12:56:00* Test Item Value Reference Range Interpretation Comments Urine Glucose (UA) (test code = 2349-9) 3+ NEGATIVE H [facility] HospitalUrine Joclbdk8546-00-32 12:56:00* Test Item Value Reference Range Interpretation Comments Urine Ketones (test code = 72157-8) NEGATIVE NEGATIVE [facility] HospitalUrine Nlbqxmeeuneb3489-95-82 12:56:00* Test Item Value Reference Range Interpretation Comments Urine Urobilinogen (test code = 57259-2) 0.2 0.2-1 [facility] HospitalUrine Gkwbszdis7782-69-36 12:56:00* Test Item Value Reference Range Interpretation Comments Urine Bilirubin (test code = 1978-6) NEGATIVE NEGATIVE [facility] HospitalUrine Feudi7850-11-18 12:56:00* Test Item Value Reference Range Interpretation Comments Urine Blood (test code = 74990-6) NEGATIVE NEGATIVE [facility] HospitalCreatine Kinase GA2030-53-10 12:52:00* Test Item Value Reference Range Interpretation Comments Creatine Kinase MB (test code = 65557-5) 0.40 0-5.0 [facility] HospitalTroponin J6169-37-98 12:52:00* Test Item Value Reference Range Interpretation Comments Troponin I (test code = URP5487) -0.001 0-0.300 [facility] HospitalCreatine Ejwrjz4992-08-48 12:39:00* Test Item Value Reference Range Interpretation Comments Creatine Kinase (test code = 2157-6) 30 29-168 [facility] HospitalAmylase Dyoqc7003-46-99 12:39:00* Test Item Value Reference Range Interpretation Comments Amylase Level (test code = 1798-8) 62 25-125 [facility] HospitalLipase2018-10-05 12:39:00* Test Item Value Reference Range Interpretation Comments Lipase (test code = 3040-3) 18 8-78 [facility] HospitalActivated Partial Thromboplast Time 2017-12-13 12:34:00* Test Item Value Reference Range Interpretation Comments Activated Partial Thromboplast Time (test code = 66418-1) 29.4 23.8-35.5 [facility] HospitalProthrombin Xyxh8081-97-22 12:33:00* Test Item Value Reference Range Interpretation Comments Prothrombin Time (test code = 5902-2) 11.5 11.9-14.5 L [facility] HospitalProthromb Time International Ratio 2017-12-13 12:33:00* Test Item Value Reference Range Interpretation Comments Prothromb Time International Ratio (test code = 6301-6) 0.77 Oral Anticoagulant Therapy INR Values:1. Low Intensity Therapy 1.5 - 2.02 . Moderate Intensity Therapy 2.0 - 3.03. High Intensity Therapy(1) 2.5 - 3. 54. High Intensity Therapy(2) 3.0 - 4.05. Panic Value INR > 5.0 [facility] HospitalWhite Blood Pogfv3432-16-64 12:23:00* Test Item Value Reference Range Interpretation Comments White Blood Count (test code = 6690-2) 11.12 4.8-10.8 H [facility] HospitalRed Blood Omshl0819-72-29 12:23:00* Test Item Value Reference Range Interpretation Comments Red Blood Count (test code = 789-8) 5.30 3.6-5.1 H [facility] HospitalHemoglobin2018-10-05 12:23:00* Test Item Value Reference Range Interpretation Comments Hemoglobin (test code = 50085-8) 15.6 12.0-16.0 [facility] HospitalHematocrit2018-10-05 12:23:00* Test Item Value Reference Range Interpretation Comments Hematocrit (test code = 4544-3) 45.7 34.2-44.1 H [facility] HospitalMean Corpuscular Ctdjmc6711-94-41 12:23:00* Test Item Value Reference Range Interpretation Comments Mean Corpuscular Volume (test code = 787-2) 86.2 81-99 [facility] HospitalMean Corpuscular Hktxsmopdc8948-79-44 12:23:00* Test Item Value Reference Range Interpretation Comments Mean Corpuscular Hemoglobin (test code = 785-6) 29.4 28-32 [facility] HospitalMean Corpuscular Hemoglobin Concent 2017-12-13 12:23:00* Test Item Value Reference Range Interpretation Comments Mean Corpuscular Hemoglobin Concent (test code = 786-4) 34.1 31-35 [facility] HospitalRed Cell Distribution Muovk2916-83-22 12:23:00* Test Item Value Reference Range Interpretation Comments Red Cell Distribution Width (test code = 74104-7) 13.2 11.7 -14.4 [facility] HospitalPlatelet Jdxqc4969-69-94 12:23:00* Test Item Value Reference Range Interpretation Comments Platelet Count (test code = 777-3) 248 140-360 [facility] HospitalNeutrophils (%) (Auto)2017-12-13 12:23:00 * Test Item Value Reference Range Interpretation Comments Neutrophils (%) (Auto) (test code = 14188-1) 68.3 38.7-80.0 [facility] HospitalLymphocytes (%) (Auto)2017-12-13 12:23:00 * Test Item Value Reference Range Interpretation Comments Lymphocytes (%) (Auto) (test code = 736-9) 20.9 18.0-39.1 [facility] HospitalMonocytes (%) (Auto)2017-12-13 12:23:00* Test Item Value Reference Range Interpretation Comments Monocytes (%) (Auto) (test code = 5905-5) 7.8 4.4-11.3 [facility] HospitalEosinophils (%) (Auto)2017-12-13 12:23:00 * Test Item Value Reference Range Interpretation Comments Eosinophils (%) (Auto) (test code = 713-8) 2.2 0.0-6.0 [facility] HospitalBasophils (%) (Auto)2017-12-13 12:23:00* Test Item Value Reference Range Interpretation Comments Basophils (%) (Auto) (test code = 706-2) 0.4 0.0-1.0 [facility] HospitalIM GRANULOCYTES %2017-12-13 12:23:00* Test Item Value Reference Range Interpretation Comments IM GRANULOCYTES % (test code = IM GRANULOCYTES %) 0.4 0.0- 1.0 [facility] HospitalNeutrophils # (Auto)2017-12-13 12:23:00* Test Item Value Reference Range Interpretation Comments Neutrophils # (Auto) (test code = 751-8) 7.6 2.1-6.9 H [facility] HospitalLymphocytes # (Auto)2017-12-13 12:23:00* Test Item Value Reference Range Interpretation Comments Lymphocytes # (Auto) (test code = 62317-2) 2.3 1.0-3.2 [facility] HospitalMonocytes # (Auto)2017-12-13 12:23:00* Test Item Value Reference Range Interpretation Comments Monocytes # (Auto) (test code = 742-7) 0.9 0.2-0.8 H [facility] HospitalEosinophils # (Auto)2017-12-13 12:23:00* Test Item Value Reference Range Interpretation Comments Eosinophils # (Auto) (test code = 711-2) 0.3 0.0-0.4 [facility] HospitalBasophils # (Auto)2017-12-13 12:23:00* Test Item Value Reference Range Interpretation Comments Basophils # (Auto) (test code = 704-7) 0.1 0.0-0.1 [facility] HospitalAbsolute Immature Granulocyte (auto 2017-12-13 12:23:00* Test Item Value Reference Range Interpretation Comments Absolute Immature Granulocyte (auto (akira t code = Absolute Immature Granulocyte (auto) 0.04 0-0.1 [facility]
--- OUTSIDE RECORDS SUMMARY | 2020-01-14 19:29 | XMS REPORT | Continuity of Care Document ---
Author Author [facility] t Organization [facility] Address [address] [place] [address] Phone Unavailable Care Team Providers Care Plant Culture Manager Name Role Phone Severo DALAL PCP VIRIDIANA LIGHT Attphys Unavailable Pattie RUST Attphys Unavailable VIRIDIANA LIGHT Admphys Unavailable Payers Payer Name Policy Type Policy Number Effective Date Expiration Date S hima [facility] Ppo [id number] CH I [facility] Problems This patient has no known problems. Allergies, Adverse Reactions, Alerts This patient has no known allergies or adverse reactions. Medications Ordered Medication Name Filled Medication Name Start Date Stop Da te Current Medication? Ordering Clinician Indication Dosage Frequency Signature (SIG) Comments Components Source Atorvastatin Calcium 40 Mg Tablet Atorvastatin Calcium 40 Mg Tablet Yes [facility] Levothyroxine Sodium 100 Mcg Tablet Levothyroxine Sodium 100 Mcg Tabl et Yes [facility] Losartan Potassium 50 Mg Tablet Losartan Potassium 50 Mg Tablet Yes [facility] Procedures This patient has no known procedures. Encounters Start Date/Time End Date/Time Encounter Type Admission Type Attendi [facility] Care Department Encounter ID Source 2019-12-25 08:56:00 2019-12-25 08:56:00 Outpatient SE [facility] [id number] [facility] 2017-12-13 11:44:00 2017-12-13 14:20:00 Departed Emergency Room 1 ANITA RUST [facility] [id number] [facility] Results Test Description Test Time Test Comments Results Result Comments Source CHEST SINGLE (PORTABLE) 2020-01-13 09:09:00 [facility] 1955 Sex: F [facility] [address] [address] Patient Name: LOLA CURTIS MR #: [id number] : 1955 Age/Sex: 64/F Req #: [id number] Adm Physician: VIRIDIANA LIGHT MD Ordered by: JESSICA ROGER MD Report #: [id number] Location: [facility] Room/Bed: [place] [address] Procedure: [id number] DX/CHEST SINGLE (PORTABLE) Exam Date: 01/13/20 Exam [...] Level (test code = 2951-2) 138 136-145 [facility]woodPotassium Ktrec3900-99-68 13:34:00* Test Item Value Reference Range Interpretation Comments Potassium Level (test code = 2823-3) 4.0 3.5-5.1 [facility] KingwoodChloride Gjlkc1396-98-34 13:34:00* Test Item Value Reference Range Interpretation Comments Chloride Level (test code = 2075-0) 103 98-107 [facility] KingwoodCarbon Dioxide Teyaf5160-60-03 13:34:00* Test Item Value Reference Range Interpretation Comments Carbon Dioxide Level (test code = 2028-9) 24 22-29 [facility] KingwoodAnion Etv3662-75-82 13:34:00* Test Item Value Reference Range Interpretation Comments Anion Gap (test code = 71850-6) 15.0 8-16 [facility] KingwoodBlood Urea Ftzeuygi3528-45-05 13:34:00* Test Item Value Reference Range Interpretation Comments Blood Urea Nitrogen (test code = 3094-0) 19 7-26 [facility] KingwoodCreatinine2018-10-05 13:34:00* Test Item Value Reference Range Interpretation Comments Creatinine (test code = 2160-0) 0.81 0.57-1.11 [facility] KingwoodBUN/Creatinine Bzhkb5347-36-83 13:34:00* Test Item Value Reference Range Interpretation Comments BUN/Creatinine Ratio (test code = 3097-3) 23 6-25 [facility] KingwoodEstimat Glomerular Filtration Rate 2017-12-13 13:34:00* Test Item Value Reference Range Interpretation Comments Estimat Glomerular Filtration Rate (test code = 182832615) 60- >60 Ranges were taken from the National Kidney Disease Education Program and the [facility] literature.Reference ranges:60 or greater: Jhlzls48-68 ( for 3 consecutive months): Chronic kidney disease 15 or less: Kidney failureMemorial Hermann Surgical Hospital KingwoodGlucose Kmdou8171-26-81 13:34:00* Test Item Value Reference Range Interpretation Comments Glucose Level (test code = XNB8215) 194 74-118 H [facility] KingwoodCalcium Qzdbi6336-72-03 13:34:00* Test Item Value Reference Range Interpretation Comments Calcium Level (test code = 20322-6) 10.3 8.4-10.2 H [facility] KingwoodTotal Varwlcjdh4857-90-86 13:34:00* Test Item Value Reference Range Interpretation Comments Total Bilirubin (test code = 1975-2) 0.6 0.2-1.2 [facility] KingwoodAspartate Amino Transf (AST/SGOT) 2017-12-13 13:34:00* Test Item Value Reference Range Interpretation Comments Aspartate Amino Transf (AST/SGOT) (test code = Aspartate Amino Transf (AST/SGOT)) 29 5-34 [facility] KingwoodAlanine Aminotransferase (ALT/SGPT) 2017-12-13 13:34:00* Test Item Value Reference Range Interpretation Comments Alanine Aminotransferase (ALT/SGPT) (test code = 1742-6) 46 0-55 [facility] KingwoodTotal Ywxtila3074-16-22 13:34:00* Test Item Value Reference Range Interpretation Comments Total Protein (test code = 2885-2) 8.6 6.5-8.1 H [facility] KingwoodAlbumin2018-10-05 13:34:00* Test Item Value Reference Range Interpretation Comments Albumin (test code = 1751-7) 4.0 3.5-5.0 [facility] KingwoodGlobulin2018-10-05 13:34:00* Test Item Value Reference Range Interpretation Comments Globulin (test code = 11775-0) 4.6 2.3-3.5 H [facility] KingwoodAlbumin/Globulin Ekrmc7973-79-31 13:34:00 * Test Item Value Reference Range Interpretation Comments Albumin/Globulin Ratio (test code = 1759-0) 0.9 0.8-2.0 [facility] KingwoodAlkaline Smmmslarbta0192-80-69 13:34:00* Test Item Value Reference Range Interpretation Comments Alkaline Phosphatase (test code = 6768-6) 168 40-150 H [facility] KingwoodUrine EUW9594-15-73 13:15:00* Test Item Value Reference Range Interpretation Comments Urine WBC (test code = 5821-4) NONE 0-5 [facility] KingwoodUrine HAK4987-86-39 13:15:00* Test Item Value Reference Range Interpretation Comments Urine RBC (test code = 74326-0) NONE 0-5 [facility] KingwoodUrine Srkssvbw4902-53-96 13:15:00* Test Item Value Reference Range Interpretation Comments Urine Bacteria (test code = 17019-4) RARE NONE [facility] KingwoodUrine Epithelial Aqisn1226-16-61 13:15:00 * Test Item Value Reference Range Interpretation Comments Urine Epithelial Cells (test code = 32345-1) FEW NONE [facility] KingwoodUrine Calcium Oxalate Hzpoefgp8169-02-75 13:15:00* Test Item Value Reference Range Interpretation Comments Urine Calcium Oxalate Crystals (test code = 5774-5) RARE FE W [facility] KingwoodUrine Pzpun9650-79-32 13:15:00* Test Item Value Reference Range Interpretation Comments Urine Mucus (test code = 8247-9) MODERATE RARE H [facility] KingwoodCHEST SINGLE (PORTABLE)2017-12-13 13:01:00 [address] [place] [address] Patient Name: LOLA CURTIS MR #: [id number] : 1955 Age/Sex: 62/F Req #: [id number] Adm Physician: Ordered by: VIKAS CAREY PROSPECT MANAGER Report #: [id number] Location: ER Room/Bed: Procedure: [id number] DX/CHEST SINGLE (PORTABLE) Exam Date: 12/13/17 Exam [...] on 12/13/17 1304 COPY TO: VIKAS CAREY PROSPECT MANAGER Urine Xbujg4390-07-75 12:56:00* Test Item Value Reference Range Interpretation Comments Urine Color (test code = 5778-6) YELLOW YELLOW [facility] KingwoodUrine Wytbrhw2887-52-12 12:56:00* Test Item Value Reference Range Interpretation Comments Urine Clarity (test code = 98657-7) HAZY CLEAR [facility] KingwoodUrine Specific Msxljhn2256-06-39 12:56:00 * Test Item Value Reference Range Interpretation Comments Urine Specific [place] (test code = 5811-5) 1.030 1.010-1.02 5 H [facility] KingwoodUrine eI4376-79-83 12:56:00* Test Item Value Reference Range Interpretation Comments Urine pH (test code = 26565-6) 6 5-7 [facility] KingwoodUrine Leukocyte Owtcqrou9567-23-30 12:56:00* Test Item Value Reference Range Interpretation Comments Urine Leukocyte Esterase (test code = 5799-2) NEGATIVE NEGATIVE [facility] KingwoodUrine Ybtjhaa0989-56-83 12:56:00* Test Item Value Reference Range Interpretation Comments Urine Nitrite (test code = 80920-6) NEGATIVE NEGATIVE [facility] KingwoodUrine Hobfzms6870-35-31 12:56:00* Test Item Value Reference Range Interpretation Comments Urine Protein (test code = 5804-0) NEGATIVE NEGATIVE [facility] KingwoodUrine Glucose (UA)2017-12-13 12:56:00* Test Item Value Reference Range Interpretation Comments Urine Glucose (UA) (test code = 2349-9) 3+ NEGATIVE H [facility] KingwoodUrine Gdbtuqu9927-22-44 12:56:00* Test Item Value Reference Range Interpretation Comments Urine Ketones (test code = 75886-7) NEGATIVE NEGATIVE [facility] KingwoodUrine Jrlbuvqrtgyy6126-18-53 12:56:00* Test Item Value Reference Range Interpretation Comments Urine Urobilinogen (test code = 59502-7) 0.2 0.2-1 [facility] KingwoodUrine Opwtkqeao2111-65-21 12:56:00* Test Item Value Reference Range Interpretation Comments Urine Bilirubin (test code = 1978-6) NEGATIVE NEGATIVE [facility] KingwoodUrine Oeiai1422-79-79 12:56:00* Test Item Value Reference Range Interpretation Comments Urine Blood (test code = 49734-5) NEGATIVE NEGATIVE [facility] KingwoodCreatine Kinase IO3724-65-27 12:52:00* Test Item Value Reference Range Interpretation Comments Creatine Kinase MB (test code = 54697-7) 0.40 0-5.0 [facility] KingwoodTroponin [id number] 12:52:00* Test Item Value Reference Range Interpretation Comments Troponin I (test code = TAI4154) -0.001 0-0.300 [facility] KingwoodCreatine Qglmkg9848-61-54 12:39:00* Test Item Value Reference Range Interpretation Comments Creatine Kinase (test code = 2157-6) 30 29-168 [facility] KingwoodAmylase Evfpr0564-88-06 12:39:00* Test Item Value Reference Range Interpretation Comments Amylase Level (test code = 1798-8) 62 25-125 [facility] KingwoodLipase2018-10-05 12:39:00* Test Item Value Reference Range Interpretation Comments Lipase (test code = 3040-3) 18 8-78 [facility] KingwoodActivated Partial Thromboplast Time 2017-12-13 12:34:00* Test Item Value Reference Range Interpretation Comments Activated Partial Thromboplast Time (test code = 90741-5) 29.4 23.8-35.5 [facility] KingwoodProthrombin Iwoi9112-15-20 12:33:00* Test Item Value Reference Range Interpretation Comments Prothrombin Time (test code = 5902-2) 11.5 11.9-14.5 L [facility] KingwoodProthromb Time International Ratio 2017-12-13 12:33:00* Test Item Value Reference Range Interpretation Comments Prothromb Time International Ratio (test code = 6301-6) 0.77 Oral Anticoagulant Therapy INR Values:1. Low Intensity Therapy 1.5 - 2.02 . Moderate Intensity Therapy 2.0 - 3.03. High Intensity Therapy(1) 2.5 - 3. 54. High Intensity Therapy(2) 3.0 - 4.05. Panic Value INR > 5.0 [facility] KingwoodWhite Blood Gkenz6960-09-09 12:23:00* Test Item Value Reference Range Interpretation Comments White Blood Count (test code = 6690-2) 11.12 4.8-10.8 H [facility] KingwoodRed Blood Zehyq4078-88-94 12:23:00* Test Item Value Reference Range Interpretation Comments Red Blood Count (test code = 789-8) 5.30 3.6-5.1 H [facility] KingwoodHemoglobin2018-10-05 12:23:00* Test Item Value Reference Range Interpretation Comments Hemoglobin (test code = 37897-1) 15.6 12.0-16.0 [facility] KingwoodHematocrit2018-10-05 12:23:00* Test Item Value Reference Range Interpretation Comments Hematocrit (test code = 4544-3) 45.7 34.2-44.1 H [facility] KingwoodMean Corpuscular Clykpc8586-21-49 12:23:00* Test Item Value Reference Range Interpretation Comments Mean Corpuscular Volume (test code = 787-2) 86.2 81-99 [facility] KingwoodMean Corpuscular Ldovgfebgf6306-78-26 12:23:00* Test Item Value Reference Range Interpretation Comments Mean Corpuscular Hemoglobin (test code = 785-6) 29.4 28-32 [facility] KingwoodMean Corpuscular Hemoglobin Concent 2017-12-13 12:23:00* Test Item Value Reference Range Interpretation Comments Mean Corpuscular Hemoglobin Concent (test code = 786-4) 34.1 31-35 [facility] KingwoodRed Cell Distribution Dtygo4673-87-32 12:23:00* Test Item Value Reference Range Interpretation Comments Red Cell Distribution Width (test code = 59442-8) 13.2 11.7 -14.4 [facility] KingwoodPlatelet Fnxxz5495-56-56 12:23:00* Test Item Value Reference Range Interpretation Comments Platelet Count (test code = 777-3) 248 140-360 [facility] KingwoodNeutrophils (%) (Auto)2017-12-13 12:23:00 * Test Item Value Reference Range Interpretation Comments Neutrophils (%) (Auto) (test code = 70641-7) 68.3 38.7-80.0 [facility] KingwoodLymphocytes (%) (Auto)2017-12-13 12:23:00 * Test Item Value Reference Range Interpretation Comments Lymphocytes (%) (Auto) (test code = 736-9) 20.9 18.0-39.1 [facility] KingwoodMonocytes (%) (Auto)2017-12-13 12:23:00* Test Item Value Reference Range Interpretation Comments Monocytes (%) (Auto) (test code = 5905-5) 7.8 4.4-11.3 [facility] KingwoodEosinophils (%) (Auto)2017-12-13 12:23:00 * Test Item Value Reference Range Interpretation Comments Eosinophils (%) (Auto) (test code = 713-8) 2.2 0.0-6.0 [facility] KingwoodBasophils (%) (Auto)2017-12-13 12:23:00* Test Item Value Reference Range Interpretation Comments Basophils (%) (Auto) (test code = 706-2) 0.4 0.0-1.0 [facility] KingwoodIM GRANULOCYTES %2017-12-13 12:23:00* Test Item Value Reference Range Interpretation Comments IM GRANULOCYTES % (test code = IM GRANULOCYTES %) 0.4 0.0- 1.0 [facility] KingwoodNeutrophils # (Auto)2017-12-13 12:23:00* Test Item Value Reference Range Interpretation Comments Neutrophils # (Auto) (test code = 751-8) 7.6 2.1-6.9 H [facility] KingwoodLymphocytes # (Auto)2017-12-13 12:23:00* Test Item Value Reference Range Interpretation Comments Lymphocytes # (Auto) (test code = 71391-5) 2.3 1.0-3.2 [facility] KingwoodMonocytes # (Auto)2017-12-13 12:23:00* Test Item Value Reference Range Interpretation Comments Monocytes # (Auto) (test code = 742-7) 0.9 0.2-0.8 H [facility] KingwoodEosinophils # (Auto)2017-12-13 12:23:00* Test Item Value Reference Range Interpretation Comments Eosinophils # (Auto) (test code = 711-2) 0.3 0.0-0.4 [facility] KingwoodBasophils # (Auto)2017-12-13 12:23:00* Test Item Value Reference Range Interpretation Comments Basophils # (Auto) (test code = 704-7) 0.1 0.0-0.1 [facility] KingwoodAbsolute Immature Granulocyte (auto 2017-12-13 12:23:00* Test Item Value Reference Range Interpretation Comments Absolute Immature Granulocyte (auto (akira t code = Absolute Immature Granulocyte (auto) 0.04 0-0.1 [facility]
--- OUTSIDE RECORDS SUMMARY | 2020-01-14 19:29 | XMS REPORT | Continuity of Care Document ---
Author Author [facility] [employer] LOLA [facility] Organization [employer] Address Unknown Phone Unavailable Care Team Providers Care Exam Proctor Name Role Phone [employer] Information Exchange Unavailable Un available Problems No Data Provided for This Section Medications No Data Provided for This Section Allergies, Adverse Reactions, Alerts No Known Medication Allergies Immunizations No Data Provided for This Section Results No Data Provided for This Section Pathology Reports No Data Provided for This Section Diagnostic Reports No Data Provided for This Section Consultation Notes No Data Provided for This Section Discharge Summaries No Data Provided for This Section History and Physicals No Data Provided for This Section Vital Signs No Data Provided for This Section Encounters Location Location Details Encounter Type Encounter Number Reason For Visit Attending Provider ADM Date DC Date Status Source Outpatient [id number] [facility] 12/22/2019 Active [facility] Outpatient [id number] [facility] 12/30/2019 Active [facility] Procedures No Data Provided for This Section Assessment and Plan No Data Provided for This Section Plan of Care No Data Provided for This Section Social History No Data Provided for This Section Family History No Data Provided for This Section Advance Directives No Data Provided for This Section Functional Status No Data Provided for This Section
--- OUTSIDE RECORDS SUMMARY | 2020-01-14 19:29 | XMS REPORT | Continuity of Care Document ---
Author Author [facility]A [facility] Organization [employer] Address Unknown Phone Unavailable Care Team Providers Care Breaker Operator Name Role Phone [employer]ON [employer] Information Exchange Unavailable Un available Problems No [...] ADM Date DC Date Status Source Outpatient [id number] [facility] 12/22/2019 Active [facility] Outpatient [id number] [facility] 12/30/2019 Active [facility] Procedures No Data Provided for This Section [...]
--- NOTE | 2020-01-14 20:15 | Discharge Summary ---
ADMISSION DIAGNOSES: Chest pain, dizziness, type 2 diabetes, hypertension, hypothyroidism, depression, hyperlipidemia. DISCHARGE DIAGNOSES: Chest pain, dizziness, type 2 diabetes, hypertension, hypothyroidism, depression, hyperlipidemia, rule out myocardial infarction. HISTORY: Type 2 diabetes, hypertension, hypothyroidism, depression, hyperlipidemia. SURGICAL HISTORY: Hysterectomy. FAMILY HISTORY: The patient's mother and 2 of her brothers had diabetes. The patient's mother and father had cancer. SOCIAL HISTORY: Noncontributory. ALLERGIES: EFFEXOR. HOSPITAL COURSE: A 64-year-old female admits with complaints of dizziness and chest pain that began this morning while lying down. She says she felt a knot in her stomach and had cramping and began shaking. She checked her sugar and it was 150. Symptoms improved with lying down and lasted about 10 minutes before resolving spontaneously. Troponins were negative x3. Her BNP was within normal limits and chest x-ray was also normal. She will continue aspirin, Lipitor, and was given a new prescription for Pepcid. The patient does not want a cardiac workup since her troponins were negative. She also says that although she had a little bit of dizziness, she was recently diagnosed with vertigo, so she also does not want a CT or MRI or carotid Doppler. So, since the troponins were negative, the patient says she wants to discharge home. So, she will follow up with primary care in 1 to 2 weeks. At the time of discharge, vital signs stable and the patient is afebrile. Dictated by Dari Greer NP MD GIGI Enamorado/JOSE /[id number]
== END 2020-01-13 18:45 | disposition home or self-care (01) ==
LOC: ER 07:18 → ERHOLD 08:33 → MED/SURG 09:18
PROVIDERS: ADMIT Internal Medicine; ATTEND Internal Medicine
DX: R07.89 Other chest pain (principal); E11.9 Type 2 diabetes mellitus without complications; E03.9 Hypothyroidism, unspecified; F32.9 Major depressive disorder, single episode, unspecified; E78.5 Hyperlipidemia, unspecified; Z11.59 Encounter for screening for other viral diseases
CPT/HCPCS: 36415; 71045; 80053; 80061; 82550; 82553; 83735; 83880; 84443; 84484; 85025; 85610; 85730; 93005; 99284; C9113; G0378; U0002

== ENCOUNTER 2020-06-17 21:22 | Emergency (ER) | payer MEDICARE, OTHER ==
[~2020-06-17] VITALS: Ht 149.9 cm; Wt 70.3 kg
[~2020-06-17 21:22] MED LIST changes: +ASPIRIN EC81 MG PO; +BENADRYL25 M1 PO; +FAMOTIDINE20 MG PO; +HUMALOG100 UNIT/1 SQ; +JANUVIA100 MG PO; +PROZAC10 MG PO; +TRESIBA100 UNIT/1 SQ
[2020-06-17] MEDS ORDERED: ONDANSETRON HCL INJ 2MG/ML 2ML 2 MG/ML VIAL IV STA (21:42)
[2020-06-17 22:07] LABS: BASOPHILS % 0.2 % (0.0-1.0); EOSINOPHILS # (AUTO) 0.1 (0.0-0.4); EOSINOPHILS % 0.4 % (0.0-6.0); HEMATOCRIT 42.4 % (34.2-44.1); HEMOGLOBIN 14.4 g/dL (12.0-16.0); LYMPHOCYTES # (AUTO) 0.9 (1.0-3.2); LYMPHOCYTES % 7.2 % (18.0-39.1); MEAN CORPUSCULAR HEMOGLOBIN 30.5 pg (28-32); MEAN CORPUSCULAR VOLUME 89.8 fL (81-99); MONOCYTES # (AUTO) 0.7 (0.2-0.8); MONOCYTES % 5.1 % (4.4-11.3); NEUTROPHILS # (AUTO) 10.9 (2.1-6.9); NEUTROPHILS % 86.2 % (38.7-80.0); PLATELET COUNT 200 x10e3/uL (140-360); RED BLOOD COUNT 4.72 x10e6/uL (3.6-5.1); RED CELL DISTRIBUTION WIDTH 13.2 % (11.7-14.4)
[2020-06-17 22:08] LABS: CLARITY,URINE SL CLOUDY (CLEAR); COLOR,URINE YELLOW (YELLOW); KETONES,URINE TRACE (NEGATIVE); LEUKOCYTE ESTERASE ,URINE NEGATIVE (NEGATIVE); NITRITE,URINE NEGATIVE (NEGATIVE); PROTEIN,URINE DIPSTICK NEGATIVE (NEGATIVE); URINE UROBILINOGEN 1 mg/dL (0.2 - 1)
[2020-06-17 22:17] LABS: BACTERIA,URINE FEW /HPF; EPITHELIAL CELLS,URINE MODERATE /LPF; RBC,URINE 0-5 /HPF (0-5)
[2020-06-17 22:26] LABS: ALANINE AMINOTRANSFERASE 39 IU/L (0-55); ALBUMIN 3.7 g/dL (3.5-5.0); ALKALINE PHOSPHATASE 122 IU/L (40-150); AMYLASE 93 U/L (25-125); ANION GAP 15.9 mmol/L (8-16); BLOOD UREA NITROGEN 23 mg/dL (7-26); BUN/CREATININE RATIO 32 (6-25); CALCIUM 8.5 mg/dL (8.4-10.2); CARBON DIOXIDE 26 mmol/L (22-29); CHLORIDE 103 mmol/L (98-107); CREATINE KINASE 23 IU/L (29-168); CREATININE, SERUM 0.72 mg/dL (0.57-1.11); EST GLOMERULAR FILTRATION RATE > 60 ML/MIN (60-); GLUCOSE 150 mg/dL (74-118); LIPASE 23 U/L (8-78); POTASSIUM 3.9 mmol/L (3.5-5.1); SODIUM 141 mmol/L (136-145)
[2020-06-18] MEDS ORDERED: IOPAMIDOL 370 MG/ML 200 ML INFUS..BTL INJ ONE (03:10)
[2020-06-18] MEDS ORDERED: SODIUM CHLORIDE 0.9% 50ML 50 ML ONE (03:10)
== END 2020-06-18 01:01 | disposition home or self-care (01) ==
LOC: ER 21:42
DX: R11.2 Nausea with vomiting, unspecified (principal); R10.9 Unspecified abdominal pain; N39.0 Urinary tract infection, site not specified; R53.1 Weakness; R94.31 Abnormal electrocardiogram [ECG] [EKG]; I10 Essential (primary) hypertension; E11.65 Type 2 diabetes mellitus with hyperglycemia; E78.5 Hyperlipidemia, unspecified; K76.9 Liver disease, unspecified; E03.9 Hypothyroidism, unspecified; F32.9 Major depressive disorder, single episode, unspecified
CPT/HCPCS: 36415; 74177; 80053; 81001; 82150; 82550; 82553; 83690; 84484; 85025; 93005; 99284; J2405; Q9967

== ENCOUNTER → 2020-11-08 | Day surgery (SDC) | payer MEDICARE, OTHER ==
[~2020-11-08] MED LIST changes: +FOLIC ACID0.4 MG PO; +IMURAN50 MG PO; +OR PHACO EYE KIT ONE; +PREOP PHACO EYE KIT ONE; +XANAX1 MG PO; +ZETIA10 MG PO
[2020-11-08 13:55] VITALS: BP 137/75
== END | disposition home or self-care (01) ==
LOC: OR 11:36
PROVIDERS: ATTEND Ophthalmology
DX: H25.12 Age-related nuclear cataract, left eye (principal); J45.909 Unspecified asthma, uncomplicated; K21.9 Gastro-esophageal reflux disease without esophagitis; E03.9 Hypothyroidism, unspecified; K75.9 Inflammatory liver disease, unspecified; F41.9 Anxiety disorder, unspecified; Z01.812 Encounter for preprocedural laboratory examination; Z20.822 Contact with and (suspected) exposure to COVID-19
CPT/HCPCS: 36415; 66984; 82948; U0002; V2632

== ENCOUNTER → 2020-12-27 | Day surgery (SDC) | payer MEDICARE, OTHER ==
[2020-12-26 08:39] LABS: BASOPHILS % 0.8 % (0.0-1.0); EOSINOPHILS # (AUTO) 0.3 (0.0-0.4); EOSINOPHILS % 5.8 % (0.0-6.0); HEMATOCRIT 37.2 % (34.2-44.1); HEMOGLOBIN 12.6 g/dL (12.0-16.0); LYMPHOCYTES # (AUTO) 1.5 (1.0-3.2); LYMPHOCYTES % 29.5 % (18.0-39.1); MEAN CORPUSCULAR HGB CONC 33.9 g/dL (31-35); MEAN CORPUSCULAR VOLUME 91.4 fL (81-99); MONOCYTES # (AUTO) 0.5 (0.2-0.8); MONOCYTES % 8.7 % (4.4-11.3); NEUTROPHILS # (AUTO) 2.8 (2.1-6.9); NEUTROPHILS % 54.8 % (38.7-80.0); PLATELET COUNT 195 x10e3/uL (140-360); RED BLOOD COUNT 4.07 x10e6/uL (3.6-5.1)
[~2020-12-27] MED LIST changes: +FENTANYL CITRATE/PF 100MCG/2 ML INJ ONE; +MIDAZOLAM HCL 2 MG/2 ML VIAL ONE
[2020-12-27 12:05] VITALS: BP 142/75
== END | disposition home or self-care (01) ==
LOC: OR 09:51
PROVIDERS: ATTEND Ophthalmology
DX: H25.11 Age-related nuclear cataract, right eye (principal); J45.909 Unspecified asthma, uncomplicated; I10 Essential (primary) hypertension; E78.5 Hyperlipidemia, unspecified; E03.9 Hypothyroidism, unspecified; K21.9 Gastro-esophageal reflux disease without esophagitis; K75.4 Autoimmune hepatitis; Z01.812 Encounter for preprocedural laboratory examination; Z20.822 Contact with and (suspected) exposure to COVID-19; Z79.4 Long term (current) use of insulin; Z87.01 Personal history of pneumonia (recurrent)
CPT/HCPCS: 36415 ×2; 66984; 82948; 85025; J2250; J3010; U0002

== ENCOUNTER 2021-07-18 16:35 | Inpatient (IN) | payer MEDICARE, OTHER ==
[~2021-07-18] VITALS: Ht 149.9 cm; Wt 69.4 kg
[~2021-07-18 16:35] MED LIST changes: -FENTANYL CITRATE/PF 100MCG/2 ML INJ ONE; -MIDAZOLAM HCL 2 MG/2 ML VIAL ONE; -OR PHACO EYE KIT ONE; -PREOP PHACO EYE KIT ONE
[2021-07-18 17:34] LABS: BASOPHILS % 0.6 % (0.0-1.0); EOSINOPHILS # (AUTO) 0.1 (0.0-0.4); EOSINOPHILS % 1.7 % (0.0-6.0); HEMATOCRIT 36.2 % (34.2-44.1); HEMOGLOBIN 11.6 g/dL (12.0-16.0); LYMPHOCYTES # (AUTO) 2.1 (1.0-3.2); MEAN CORPUSCULAR HEMOGLOBIN 29.7 pg (28-32); MEAN CORPUSCULAR VOLUME 92.6 fL (81-99); MONOCYTES # (AUTO) 0.6 (0.2-0.8); MONOCYTES % 9.3 % (4.4-11.3); NEUTROPHILS % 57.8 % (38.7-80.0); PLATELET COUNT 180 x10e3/uL (140-360); RED BLOOD COUNT 3.91 x10e6/uL (3.6-5.1); RED CELL DISTRIBUTION WIDTH 14.4 % (11.7-14.4)
[2021-07-18 17:52] LABS: ALBUMIN 3.6 g/dL (3.5-5.0); ALBUMIN/GLOBULIN RATIO 1.1 (0.8-2.0); ANION GAP 11.1 mmol/L (8-16); CALCIUM 8.5 mg/dL (8.4-10.2); CREATININE, SERUM 0.74 mg/dL (0.57-1.11); POTASSIUM 4.1 mmol/L (3.5-5.1)
[2021-07-18 18:26] LABS: CREATINE KINASE MB 2.3 ng/mL (0-5.0)
[2021-07-18] MEDS ORDERED: SODIUM CHLORIDE FLUSH 10 ML SYR INJ PRN (19:00)
[2021-07-18] MEDS: FUROSEMIDE INJ 10 MG/ML 2 ML VIAL IV SCH (19:49)
[2021-07-18 21:30] VITALS: BP 138/86
[2021-07-18 22:00] VITALS: BP 138/86
[2021-07-19] VITALS (9 sets, daily range): BP systolic 114–138; BP diastolic 61–79
[2021-07-19] MEDS ORDERED: BUSPIRONE HCL5 MG PO (01:59)
[2021-07-19] MEDS ORDERED: FLOVENT HFA12 GM (01:59)
[2021-07-19] MEDS ORDERED: TRADJENTA5 MG (01:59)
[2021-07-19] MEDS ORDERED: PROVENTIL HFA6.7 GM INH (01:59)
[2021-07-19 03:51] LABS: CREATINE KINASE MB 2.4 ng/mL (0-5.0)
[2021-07-19 05:43] LABS: CHOL/HDL RATIO 3.6 (3.0-3.6)
[2021-07-19] MEDS: FUROSEMIDE INJ 10 MG/ML 2 ML VIAL IV SCH ×2 (09:42→16:17)
[2021-07-19 13:54] LABS: CREATINE KINASE MB 2.3 ng/mL (0-5.0)
[2021-07-19] MEDS ORDERED: DEXTROSE 50% SYRINGE 50 ML IV PRN (16:15)
[2021-07-19] MEDS: INSULIN LISPRO 100 UNIT/1 ML 3ML VIAL SQ SCH ×2 (16:30→21:00)
[2021-07-19] MEDS: ENOXAPARIN SOD INJ 40 MG/0.4 ML SYR SC SCH (16:45)
[2021-07-19] MEDS ORDERED: NON-FORMULARY MEDICATION (Atorvastatin Calcium 40 MG) PO SCH (21:00)
[2021-07-19] MEDS: ATORVASTATIN 40 MG TAB PO SCH (21:47)
[2021-07-20] VITALS (8 sets, daily range): BP systolic 110–123; BP diastolic 65–72
[2021-07-20] MEDS: LEVOTHYROXINE SODIUM 100 MCG TAB PO SCH ×2 (04:45→05:57)
[2021-07-20] MEDS: INSULIN LISPRO 100 UNIT/1 ML 3ML VIAL SQ SCH ×4 (07:30→21:00)
[2021-07-20] MEDS: FAMOTIDINE 20 MG TAB PO SCH (07:30)
[2021-07-20] MEDS ORDERED: NON-FORMULARY MEDICATION (Folic Acid* 1 MG) PO SCH (09:00)
[2021-07-20] MEDS ORDERED: REGADENOSON 0.4 MG/5 ML SYR IV ONE (09:03)
[2021-07-20] MEDS: ASPIRIN 81 MG ENTERIC COATED PO SCH (12:25)
[2021-07-20] MEDS: FUROSEMIDE INJ 10 MG/ML 2 ML VIAL IV SCH ×2 (12:25→17:01)
[2021-07-20] MEDS: FLUOXETINE HCL 10 MG CAP PO SCH (12:26)
[2021-07-20] MEDS: FOLIC ACID 1 MG TAB PO SCH (12:26)
[2021-07-20] MEDS: METOPROLOL SUCCINATE 25 MG TAB XL PO SCH (12:26)
[2021-07-20] MEDS: EZETIMIBE 10 MG TAB PO SCH (12:27)
[2021-07-20] MEDS: LISINOPRIL 2.5 MG TAB PO SCH (12:27)
[2021-07-20] MEDS: ENOXAPARIN SOD INJ 40 MG/0.4 ML SYR SC SCH (17:01)
[2021-07-20] MEDS: ATORVASTATIN 40 MG TAB PO SCH (20:40)
[2021-07-21] VITALS: BP 93/56
[2021-07-21 04:00] VITALS: BP 108/64
[2021-07-21] MEDS: LEVOTHYROXINE SODIUM 100 MCG TAB PO SCH (05:23)
[2021-07-21] MEDS: FAMOTIDINE 20 MG TAB PO SCH (07:30)
[2021-07-21] MEDS: INSULIN LISPRO 100 UNIT/1 ML 3ML VIAL SQ SCH ×2 (07:30→11:30)
[2021-07-21] MEDS ORDERED: HEPARIN SOD (PORCINE) 1000 UNIT/ML 30ML ONE (07:31)
[2021-07-21] MEDS ORDERED: HEPARIN SOD/SOD CHLORIDE 2,000 ML ONE (07:31)
[2021-07-21] MEDS ORDERED: LIDOCAINE HCL 2% LOCAL 20 ML VIAL ONE (07:31)
[2021-07-21] MEDS ORDERED: NITROGLYCERIN/D5W 200 MCG/ML 250 ML ONE (07:32)
[2021-07-21] MEDS ORDERED: IOPAMIDOL 370 MG/ML 100 ML INFUS..BTL INJ ONE ×2 (07:32→08:45)
[2021-07-21] MEDS ORDERED: SODIUM CHLORIDE 0.9% 1000ML 1,000 ML ONE (07:32)
[2021-07-21] MEDS ORDERED: MIDAZOLAM HCL 2 MG/2 ML VIAL ONE (08:18)
[2021-07-21] MEDS ORDERED: FENTANYL CITRATE/PF 100MCG/2 ML INJ ONE (08:19)
[2021-07-21 09:30] VITALS: BP 118/75
[2021-07-21] MEDS: FLUOXETINE HCL 10 MG CAP PO SCH (09:45)
[2021-07-21] MEDS: FUROSEMIDE INJ 10 MG/ML 2 ML VIAL IV SCH (09:45)
[2021-07-21] MEDS: ASPIRIN 81 MG ENTERIC COATED PO SCH (09:45)
[2021-07-21] MEDS: FOLIC ACID 1 MG TAB PO SCH (09:45)
[2021-07-21] MEDS: EZETIMIBE 10 MG TAB PO SCH (09:45)
[2021-07-21] MEDS: METOPROLOL SUCCINATE 25 MG TAB XL PO SCH (09:50)
[2021-07-21] MEDS: LISINOPRIL 2.5 MG TAB PO SCH (09:51)
[2021-07-21 10:05] VITALS: BP 118/75
[2021-07-21 12:28] VITALS: BP 104/75
[2021-07-21 12:29] VITALS: BP 104/75
[2021-07-21] MEDS ORDERED: ACETAMINOPHEN 325 MG TAB PO STA (12:48)
[2021-07-22] MEDS ORDERED: ASPIRIN 81 MG ENTERIC COATED PO SCH (09:00)
== END 2021-07-21 15:18 | disposition short-term general hospital (02) | DRG 286 ==
LOC: ER 17:19 → ERHOLD 18:58 → MED/SURG2 20:47 → OBSVTOIN 07-19 15:08
PROVIDERS: ADMIT Internal Medicine; ATTEND Internal Medicine
PROC: 4A023N7 Measurement of Cardiac Sampling and Pressure, Left Heart, Percutaneous Approach (ICD-10-PCS; principal; 2021-07-21)
PROC: B2111ZZ Fluoroscopy of Multiple Coronary Arteries using Low Osmolar Contrast (ICD-10-PCS; 2021-07-21)
PROC: B2151ZZ Fluoroscopy of Left Heart using Low Osmolar Contrast (ICD-10-PCS; 2021-07-21)
DX: I11.0 Hypertensive heart disease with heart failure (principal); I50.21 Acute systolic (congestive) heart failure; E11.9 Type 2 diabetes mellitus without complications; K75.4 Autoimmune hepatitis; E78.5 Hyperlipidemia, unspecified; E03.9 Hypothyroidism, unspecified; F32.A Depression, unspecified; Z20.822 Contact with and (suspected) exposure to COVID-19; K76.89 Other specified diseases of liver; J45.909 Unspecified asthma, uncomplicated; E66.9 Obesity, unspecified; Z68.30 Body mass index [BMI] 30.0-30.9, adult; Z79.899 Other long term (current) drug therapy
CPT/HCPCS: 36415; 71045; 76937; 78452; 80053; 80061; 82550; 82553; 82948; 83880; 84484; 85025; 93005; 93017; 93306; 93458; 99152; 99153; 99284; A9502; C1760; C1769; C1887; G0378; J1644; J1650; J1940; J2001; J2250; J3010; J7030; Q9967

== ENCOUNTER 2022-05-08 16:32 | Emergency (ER) | payer MEDICARE, OTHER ==
[~2022-05-08] VITALS: Ht 149.9 cm; Wt 69.9 kg
[~2022-05-08 16:32] MED LIST changes: +BUSPIRONE HCL5 MG PO; +FLOVENT HFA12 GM; +PROVENTIL HFA6.7 GM INH; +TRADJENTA5 MG
[2022-05-08] MEDS ORDERED: HYDROXYZINE HCL 25 MG TAB PO ONE (16:45)
[2022-05-08] MEDS ORDERED: ASPIRIN 325 MG TAB PO ONE (16:45)
[2022-05-08 17:02] LABS: BASOPHILS % 0.2 % (0.0-1.0); EOSINOPHILS # (AUTO) 0.2 (0.0-0.4); EOSINOPHILS % 2.8 % (0.0-6.0); HEMOGLOBIN 12.4 g/dL (12.0-16.0); LYMPHOCYTES # (AUTO) 1.4 (1.0-3.2); MEAN CORPUSCULAR HGB CONC 33.5 g/dL (31-35); MEAN CORPUSCULAR VOLUME 89.4 fL (81-99); MONOCYTES # (AUTO) 0.5 (0.2-0.8); MONOCYTES % 7.9 % (4.4-11.3); NEUTROPHILS # (AUTO) 4.3 (2.1-6.9); NEUTROPHILS % 66.5 % (38.7-80.0); PLATELET COUNT 238 x10e3/uL (140-360); RED BLOOD COUNT 4.14 x10e6/uL (3.6-5.1); RED CELL DISTRIBUTION WIDTH 14.6 % (11.7-14.4)
[2022-05-08 17:22] LABS: ALBUMIN 3.8 g/dL (3.5-5.0); ANION GAP 17.2 mmol/L (8-16); CALCIUM 9.1 mg/dL (8.4-10.2); CREATININE, SERUM 0.95 mg/dL (0.57-1.11); POTASSIUM 3.2 mmol/L (3.5-5.1)
[2022-05-08 17:28] LABS: CREATINE KINASE MB 0.9 ng/mL (0-5.0)
[2022-05-08] MEDS ORDERED: POTASSIUM CHLORIDE 20 MEQ TAB CR PO STA (18:19)
[2022-05-08 18:36] LABS: CLARITY,URINE CLEAR (CLEAR); COLOR,URINE YELLOW (YELLOW); KETONES,URINE NEGATIVE (NEGATIVE); LEUKOCYTE ESTERASE ,URINE NEGATIVE (NEGATIVE); NITRITE,URINE NEGATIVE (NEGATIVE); PROTEIN,URINE DIPSTICK NEGATIVE (NEGATIVE)
[2022-05-08 18:37] LABS: URINE UROBILINOGEN 1 mg/dL (0.2 - 1)
[2022-05-08 19:59] VITALS: BP 124/64
[2022-05-08 20:15] LABS: BACTERIA,URINE RARE /HPF; EPITHELIAL CELLS,URINE RARE /LPF; RBC,URINE 0-5 /HPF (0-5); WBC,URINE (MAN) 0-5 /HPF (0-5)
[2022-05-08 20:16] LABS: CALCIUM OXALATE CRYSTALS,UR MODERATE (FEW)
== END 2022-05-08 19:41 | disposition home or self-care (01) ==
LOC: ER 16:36
DX: R53.1 Weakness (principal); R07.89 Other chest pain; E87.6 Hypokalemia; F41.9 Anxiety disorder, unspecified; Z20.822 Contact with and (suspected) exposure to COVID-19
CPT/HCPCS: 0223U; 36415; 71045; 80053; 81001; 82550; 82553; 83880; 84484; 85025; 93005; 99284; J3410

== ENCOUNTER 2024-12-21 05:42 | Day surgery (SDC) | payer MEDICARE, OTHER ==
[2024-12-16 12:36] LABS: BASOPHILS % 0.7 % (0.0-1.0); EOSINOPHILS % 3.0 % (0.0-6.0); LYMPHOCYTES % 20.0 % (18.0-39.1); MONOCYTES % 10.1 % (4.4-11.3); NEUTROPHILS % 65.8 % (38.7-80.0); RED CELL DISTRIBUTION WIDTH 13.2 % (11.7-14.4)
[2024-12-16 13:50] LABS: INR 1.0
[2024-12-16 13:53] LABS: CHOL/HDL RATIO 3.2 (3.0-3.6); EST GLOMERULAR FILTRATION RATE 90.0 ML/MIN (>=60); LDL CHOLESTEROL 60.0 MG/DL (60-130)
[2024-12-21] VITALS (10 sets, daily range): BP systolic 131–150; BP diastolic 56–73; PULSE 50–67; RESP 14–19; TEMP 97.1–98.2; O2SAT 93–98
[~2024-12-21] VITALS: Ht 149.9 cm; Wt 69.9 kg
[~2024-12-21 05:42] MED LIST changes: +BACTRIM DS TAB1 EACH PO; +BUMETANIDE1 MG PO; +CLOPIDOGREL75 MG PO; +FEROSUL325 MG PO; +FUROSEMIDE40 MG PO; +ISOSORBIDE MONO10 MG PO; +MIRALAX17 GM PO; +OZEMPIC0.25 MG/02 SQ; +PANTOPRAZOLE SO40 MG PO; +RANOLAZINE ER1000 MG PO; +SPIRONOLACTONE25 MG PO
[2024-12-21] MEDS ORDERED: HEPARIN SOD (PORCINE) 1000 UNIT/ML 30ML ONE (06:32)
[2024-12-21] MEDS ORDERED: VERAPAMIL HCL 2.5 MG/ML 2 ML VIAL ONE (06:32)
[2024-12-21] MEDS ORDERED: LIDOCAINE HCL 2% LOCAL 20 ML VIAL ONE (06:32)
[2024-12-21] MEDS ORDERED: IOPAMIDOL 370 MG/ML 100 ML INFUS..BTL INJ ONE (06:33)
[2024-12-21] MEDS ORDERED: SODIUM CHLORIDE 0.9% 1000ML 1,000 ML ONE (06:33)
[2024-12-21] MEDS ORDERED: HEPARIN SOD/SOD CHLORIDE 2,000 ML ONE (06:33)
[2024-12-21] MEDS ORDERED: NITROGLYCERIN/D5W 200 MCG/ML 250 ML ONE (06:33)
[2024-12-21] MEDS ORDERED: MIDAZOLAM HCL 2 MG/2 ML VIAL ONE (07:14)
[2024-12-21] MEDS ORDERED: FENTANYL CITRATE/PF 100MCG/2 ML INJ ONE (07:14)
== END 2024-12-21 10:45 | disposition home or self-care (01) ==
LOC: CATH LAB 05:42
PROVIDERS: ATTEND Internal Medicine Cardiovascular Disease
DX: I25.110 Atherosclerotic heart disease of native coronary artery with unstable angina pectoris (principal); R94.39 Abnormal result of other cardiovascular function study; Z95.5 Presence of coronary angioplasty implant and graft; I10 Essential (primary) hypertension; E11.9 Type 2 diabetes mellitus without complications; E03.9 Hypothyroidism, unspecified; J45.909 Unspecified asthma, uncomplicated; Z01.810 Encounter for preprocedural cardiovascular examination; Z01.812 Encounter for preprocedural laboratory examination; Z01.818 Encounter for other preprocedural examination; Z79.02 Long term (current) use of antithrombotics/antiplatelets; Z79.82 Long term (current) use of aspirin; Z79.4 Long term (current) use of insulin; Z68.30 Body mass index [BMI] 30.0-30.9, adult
CPT/HCPCS: 36415; 71046; 76937; 80048; 80061; 85025; 85610; 85730; 93005; 93458; C1760; C1769; C1887 ×2; J1644; J2003; J2250; J3010; J7030; Q9967; 99152; 99153